=== PATIENT | male | born 1955 | race Two or more races ===

== ENCOUNTER 2021-08-10 10:17 | Emergency (ER) | payer MEDICAID ==
[~2021-08-10] VITALS: Ht 190.5 cm; Wt 139.7 kg
[2021-08-10 11:11] LABS: Basophils # (auto) 0.1 10 ^3/uL (0-0.2); Basophils % (auto) 1.4 % (0.0-2.0); Eosinophils # (auto) 0.3 10 ^3/uL (0-0.8); Hematocrit 41.8 % (41.0-53.0); Hemoglobin 13.9 g/dL (13.5-17.5); Lymphocytes # (auto) 1.8 10 ^3/uL (0.4-5.4); Mean Corpuscular Hemoglobin 29.6 pg (28.0-32.0); Mean Corpuscular Hgb Conc. 33.4 g/dL (32.0-36.0); Mean Corpuscular Volume 88.7 fL (80.0-100.0); Monocytes # (auto) 0.8 10 ^3/uL (0-1.3); Monocytes % (auto) 13.4 % (0.0-12.0); Neutrophils # (auto) 2.7 10 ^3/uL (1.6-8.6); Neutrophils % (auto) 48.2 % (37.0-80.0); Nucleated Red Blood Cells % 0.1 %; Red Blood Cells 4.71 10^6/uL (4.5-5.90); Red Cell Distribution Width 15.6 % (11.8-14.3); White Blood Cell 5.7 10^3/uL (4.4-10.8)
[2021-08-10 11:35] LABS: Albumin 3.5 g/dL (3.4-5.0); Calcium 8.4 mg/dL (8.5-10.1); Magnesium 2.6 mg/dL (1.6-2.6); Potassium 4.4 mmol/L (3.5-5.1)
[2021-08-10 11:40] LABS: BUN/Creatinine Ratio 15.7; Bilirubin, Total 0.2 mg/dL (0.2-1.0); Total Protein 7.5 g/dL (6.4-8.2)
[2021-08-10] MEDS ORDERED: NITROGLYCERIN 0.4 MG SL TAB SL ONE (15:30)
[2021-08-10 16:51] VITALS: BP 125/77
== END 2021-08-10 16:52 | disposition home or self-care (01) ==
LOC: ER 10:17
DX: R07.89 Other chest pain (principal); I10 Essential (primary) hypertension; E78.5 Hyperlipidemia, unspecified; Z88.0 Allergy status to penicillin
CPT/HCPCS: 36415; 71046; 80053; 83735; 84443; 84484; 85025; 93005

== ENCOUNTER 2023-05-18 17:10 | Inpatient (IN) | payer MEDICARE, MEDICAID ==
[~2023-05-18] VITALS: Ht 190.5 cm; Wt 133.9 kg
[2023-05-18 19:32] LABS: Basophils # (auto) 0.1 10 ^3/uL (0-0.2); Basophils % (auto) 0.9 % (0.0-2.0); Eosinophils # (auto) 0.3 10 ^3/uL (0-0.8); Eosinophils % (auto) 4.8 % (0.0-7.0); Hematocrit 43.7 % (41.0-53.0); Hemoglobin 14.5 g/dL (13.5-17.5); Lymphocytes # (auto) 1.8 10 ^3/uL (0.4-5.4); Lymphocytes % (auto) 28.4 % (10.0-50.0); Mean Corpuscular Hemoglobin 29.1 pg (28.0-32.0); Mean Corpuscular Hgb Conc. 33.1 g/dL (32.0-36.0); Mean Corpuscular Volume 87.8 fL (80.0-100.0); Monocytes # (auto) 0.6 10 ^3/uL (0-1.3); Monocytes % (auto) 8.8 % (0.0-12.0); Neutrophils # (auto) 3.7 10 ^3/uL (1.6-8.6); Neutrophils % (auto) 57.1 % (37.0-80.0); Nucleated Red Blood Cells % 0.1 %; Red Blood Cells 4.98 10^6/uL (4.5-5.90); Red Cell Distribution Width 16.4 % (11.8-14.3); White Blood Cell 6.5 10^3/uL (4.4-10.8)
[2023-05-18 19:41] LABS: Chloride 107 mmol/L (98-107); Potassium 4.1 mmol/L (3.5-5.1); Sodium 141 mmol/L (136-145)
[2023-05-18 19:42] LABS: Calcium 9.4 mg/dL (8.5-10.1)
[2023-05-18 19:46] LABS: INR 1.05 (0.9-1.15); Partial Thromboplastin Time 33.6 SEC (24.5-34.5)
[2023-05-18 19:47] LABS: BUN/Creatinine Ratio 9.9 (10.0-20.0); Blood Urea Nitrogen 10 mg/dL (9-23); Glucose 87 mg/dL (74-106)
[2023-05-18 19:56] LABS: Anion Gap 8 (5-15); Carbon Dioxide 26 mmol/L (20-30)
[2023-05-18] MEDS ORDERED: ACETAMINOPHEN 325 MG TAB PO PRN (21:00)
[2023-05-18] MEDS ORDERED: ONDANSETRON HCL 4 MG/2 ML VIAL IV PRN (21:00)
[2023-05-18] MEDS: GABAPENTIN 300 MG CAP PO SCH (22:49)
[2023-05-18] MEDS: ENOXAPARIN SOD 100 MG/1 ML SYRINGE SC SCH (22:49)
[2023-05-19 05:03] LABS: Basophils # (auto) 0.1 10 ^3/uL (0-0.2); Eosinophils # (auto) 0.3 10 ^3/uL (0-0.8); Eosinophils % (auto) 5.4 % (0.0-7.0); Hematocrit 42.7 % (41.0-53.0); Lymphocytes % (auto) 32.1 % (10.0-50.0); Mean Corpuscular Hemoglobin 29.1 pg (28.0-32.0); Mean Corpuscular Hgb Conc. 32.8 g/dL (32.0-36.0); Mean Corpuscular Volume 88.5 fL (80.0-100.0); Monocytes # (auto) 0.8 10 ^3/uL (0-1.3); Monocytes % (auto) 12.3 % (0.0-12.0); Neutrophils # (auto) 3.1 10 ^3/uL (1.6-8.6); Neutrophils % (auto) 49.2 % (37.0-80.0); Red Blood Cells 4.82 10^6/uL (4.5-5.90); Red Cell Distribution Width 16.1 % (11.8-14.3); White Blood Cell 6.3 10^3/uL (4.4-10.8)
[2023-05-19 05:18] LABS: Alanine Aminotransferase 17 U/L (7-40); Albumin 4.4 g/dL (3.2-4.8); Alkaline Phosphatase 61 U/L (46-116); Anion Gap 6 (5-15); Aspartate Aminotransferase 16 U/L (13-40); BUN/Creatinine Ratio 13.2 (10.0-20.0); Bilirubin, Total 0.4 mg/dL (0.2-1.0); Blood Urea Nitrogen 10 mg/dL (9-23); Calcium 9.1 mg/dL (8.5-10.1); Carbon Dioxide 26 mmol/L (20-30); Chloride 109 mmol/L (98-107); Glucose 80 mg/dL (74-106); Potassium 3.9 mmol/L (3.5-5.1); Sodium 141 mmol/L (136-145); Total Protein 6.9 g/dL (5.7-8.2)
[2023-05-19 06:16] LABS: Urine Epithelial Cast None Seen /hpf (<5); Urine WBC None Seen /hpf (0 - 3)
[2023-05-19 06:26] LABS: Urine Bacteria NONE SEEN /hpf (None Seen); Urine Blood Negative /uL (Negative); Urine Clarity Clear (Clear); Urine Color Colorless (Yellow); Urine Mucus FEW (None Seen); Urine Protein, UAD Negative (Negative); Urine Specific Gravity 1.008 (1.001-1.035); Urine Urobilinogen Normal (Negative)
[2023-05-19 08:50] VITALS: RESP 18; O2SAT 97
[2023-05-19] MEDS ORDERED: LOSARTAN POTASSIUM 25 MG TAB PO SCH (10:00)
[2023-05-19] MEDS: GABAPENTIN 300 MG CAP PO SCH ×2 (10:33→23:04)
[2023-05-19] MEDS: amLODIPine BESYLATE 5 MG TAB PO SCH (10:33)
[2023-05-19] MEDS: ENOXAPARIN SOD 100 MG/1 ML SYRINGE SC SCH (10:34)
[2023-05-19] MEDS ORDERED: IOHEXOL 350 MG/ML 100ML IJ ONE (17:08)
[2023-05-19] MEDS: TAMSULOSIN HYDROCHLORIDE 0.4 MG CAP PO SCH (18:50)
[2023-05-19] MEDS ORDERED: HEPARIN SODIUM (PORCINE) 5000 UNITS/ML 1ML VIAL IV ONE ×2 (19:30→20:00)
[2023-05-19 19:48] LABS: Basophils # (auto) 0.1 10 ^3/uL (0-0.2); Basophils % (auto) 0.9 % (0.0-2.0); Eosinophils # (auto) 0.4 10 ^3/uL (0-0.8); Eosinophils % (auto) 6.8 % (0.0-7.0); Hematocrit 42.1 % (41.0-53.0); Hemoglobin 14.1 g/dL (13.5-17.5); Lymphocytes # (auto) 1.8 10 ^3/uL (0.4-5.4); Lymphocytes % (auto) 31.7 % (10.0-50.0); Mean Corpuscular Hemoglobin 29.4 pg (28.0-32.0); Mean Corpuscular Hgb Conc. 33.4 g/dL (32.0-36.0); Mean Corpuscular Volume 87.9 fL (80.0-100.0); Monocytes # (auto) 0.5 10 ^3/uL (0-1.3); Monocytes % (auto) 8.5 % (0.0-12.0); Neutrophils % (auto) 52.1 % (37.0-80.0); Red Blood Cells 4.79 10^6/uL (4.5-5.90); Red Cell Distribution Width 16.5 % (11.8-14.3); White Blood Cell 5.8 10^3/uL (4.4-10.8)
[2023-05-19 20:02] LABS: INR 1.04 (0.9-1.15); Partial Thromboplastin Time 35.8 SEC (24.5-34.5); Prothrombin Time 10.9 sec (9.3-11.8)
[2023-05-19] MEDS ORDERED: HEPARIN SODIUM (PORCINE) 5000 UNITS/ML 1ML VIAL ONE (23:14)
[2023-05-19] MEDS: HEPARIN DRIP/D5W 100UNITS/ML 250 ML IV SCH (23:14)
[2023-05-19 23:52] VITALS: BP 130/84; PULSE 85; RESP 20; TEMP 98.7; O2SAT 92
[2023-05-20] VITALS (7 sets, daily range): BP systolic 114–127; BP diastolic 77–89; PULSE 74–95; RESP 18–20; TEMP 97.8–98.8; O2SAT 90–97
[2023-05-20] MEDS ORDERED: AMLO1TAB23 PO (01:04)
[2023-05-20] MEDS ORDERED: ROSU20TA14 PO (01:04)
[2023-05-20] MEDS ORDERED: APIX5TAB PO (01:04)
[2023-05-20 06:30] LABS: Chloride 107 mmol/L (98-107); Potassium 3.9 mmol/L (3.5-5.1); Sodium 139 mmol/L (136-145)
[2023-05-20 06:31] LABS: Anion Gap 6 (5-15); Calcium 9.3 mg/dL (8.5-10.1); Carbon Dioxide 26 mmol/L (20-30)
[2023-05-20 06:36] LABS: BUN/Creatinine Ratio 10.7 (10.0-20.0); Blood Urea Nitrogen 9 mg/dL (9-23); Glucose 88 mg/dL (74-106)
[2023-05-20 06:38] LABS: Basophils # (auto) 0.1 10 ^3/uL (0-0.2); Eosinophils # (auto) 0.4 10 ^3/uL (0-0.8); Eosinophils % (auto) 6.6 % (0.0-7.0); Hemoglobin 13.8 g/dL (13.5-17.5); Lymphocytes # (auto) 2.1 10 ^3/uL (0.4-5.4); Lymphocytes % (auto) 31.8 % (10.0-50.0); Mean Corpuscular Hemoglobin 29.7 pg (28.0-32.0); Mean Corpuscular Hgb Conc. 33.7 g/dL (32.0-36.0); Monocytes # (auto) 0.8 10 ^3/uL (0-1.3); Monocytes % (auto) 11.6 % (0.0-12.0); Neutrophils # (auto) 3.2 10 ^3/uL (1.6-8.6); Nucleated Red Blood Cells % 0.1 %; Red Blood Cells 4.67 10^6/uL (4.5-5.90); Red Cell Distribution Width 16.6 % (11.8-14.3); White Blood Cell 6.5 10^3/uL (4.4-10.8)
[2023-05-20 06:54] LABS: INR 1.07 (0.9-1.15); Prothrombin Time 11.2 sec (9.3-11.8)
[2023-05-20 07:10] LABS: Partial Thromboplastin Time 130.1 SEC (24.5-34.5)
[2023-05-20] MEDS: HEPARIN DRIP/D5W 100UNITS/ML 250 ML IV SCH (08:33)
[2023-05-20] MEDS: GABAPENTIN 300 MG CAP PO SCH ×2 (09:45→22:47)
[2023-05-20] MEDS: amLODIPine BESYLATE 5 MG TAB PO SCH (09:46)
[2023-05-20] MEDS: ENOXAPARIN SOD 150 MG/1 ML SYRINGE SC SCH (13:56)
[2023-05-20] MEDS: TAMSULOSIN HYDROCHLORIDE 0.4 MG CAP PO SCH (17:09)
[2023-05-20] MEDS ORDERED: ATORVASTATIN 20 MG TAB PO SCH (22:00)
[2023-05-21] MEDS: ENOXAPARIN SOD 150 MG/1 ML SYRINGE SC SCH ×2 (01:43→14:11)
[2023-05-21 05:22] VITALS: BP 107/72; PULSE 91; RESP 20; TEMP 98.7; O2SAT 90
[2023-05-21 05:31] LABS: LDL Cholesterol 110 mg/dL (< 100); Triglycerides 97 mg/dL (< 150)
[2023-05-21 05:32] LABS: Cholesterol 156 mg/dL (< 200); HDL Cholesterol 37 mg/dL (40-59)
[2023-05-21 09:27] VITALS: BP 131/87; PULSE 88; RESP 20; TEMP 98.4; O2SAT 95
[2023-05-21] MEDS: GABAPENTIN 300 MG CAP PO SCH (09:43)
[2023-05-21] MEDS: amLODIPine BESYLATE 5 MG TAB PO SCH (09:43)
[2023-05-21 12:32] VITALS: BP 126/90; PULSE 88; RESP 20; TEMP 98.4; O2SAT 94
[2023-05-21] MEDS ORDERED: APIX5TAB PO (12:42)
[2023-05-22 08:31] LABS: Hepatitis B Surface Antigen Negative (Negative)
[2023-05-22 08:52] LABS: Hepatitis C Antibody Negative (Negative)
== END 2023-05-21 14:52 | disposition home or self-care (01) | DRG 299 ==
LOC: ER 17:10 → OVERFLOW 21:10 → WEST WING 05-19 22:02
PROVIDERS: ADMIT Nurse Practitioner; ATTEND Internal Medicine
DX: I82.432 Acute embolism and thrombosis of left popliteal vein (principal); I26.99 Other pulmonary embolism without acute cor pulmonale; I10 Essential (primary) hypertension; E66.01 Morbid (severe) obesity due to excess calories; E11.9 Type 2 diabetes mellitus without complications; Z68.36 Body mass index [BMI] 36.0-36.9, adult; E78.5 Hyperlipidemia, unspecified; I71.20 Thoracic aortic aneurysm, without rupture, unspecified; Z88.0 Allergy status to penicillin
CPT/HCPCS: 36415; 71275; 80048; 80053; 80061; 81001; 85025; 85610; 85730; 86803; 87340; 93005; 93306; 93971; 96372; 99291; G0378

== ENCOUNTER 2024-01-20 13:28 | Emergency (ER) | payer MEDICARE, MEDICAID ==
[~2024-01-20] VITALS: Ht 190.5 cm; Wt 135.4 kg
[~2024-01-20 13:28] MED LIST: AMLO1TAB23 PO; APIX5TAB PO; ROSU20TA14 PO
[2024-01-20 14:22] VITALS: BP 118/73; PULSE 81; RESP 16; O2SAT 94
[2024-01-20] MEDS ORDERED: ACETAMINOPHEN 325 MG TAB PO ONE (15:15)
[2024-01-20] MEDS ORDERED: traMADol HCL 50 MG TAB PO ONE (15:15)
[2024-01-20] MEDS ORDERED: TRAM50TA2 PO (15:56)
[2024-01-20] MEDS ORDERED: ACET650T12 PO (15:56)
== END 2024-01-20 19:08 | disposition left against medical advice (07) ==
LOC: ER 13:28
DX: S69.92XA Unspecified injury of left wrist, hand and finger(s), initial encounter (principal); M25.571 Pain in right ankle and joints of right foot; I10 Essential (primary) hypertension; Z79.899 Other long term (current) drug therapy; Z88.0 Allergy status to penicillin; V89.9XXA Person injured in unspecified vehicle accident, initial encounter; Y93.89 Activity, other specified; Y92.89 Other specified places as the place of occurrence of the external cause; Y99.8 Other external cause status
CPT/HCPCS: 29125; 73110; 73610

== ENCOUNTER 2024-02-13 16:31 | Emergency (ER) | payer MEDICARE, MEDICAID ==
[~2024-02-13] VITALS: Ht 182.9 cm; Wt 136.0 kg
[~2024-02-13 16:31] MED LIST changes: +ACET650T12 PO; +TRAM50TA2 PO
[2024-02-13] MEDS: MORPHINE SULFATE 4 MG/ML SYR/VIAL IM ONE (16:59)
[2024-02-13] MEDS: ONDANSETRON ODT 4 MG TAB PO ONE (17:00)
[2024-02-13 17:07] VITALS: BP 138/93; PULSE 103; RESP 22; TEMP 98.3; O2SAT 96
[2024-02-13] MEDS ORDERED: LIDOCAINE HCL 2 %PF INJ 10ML AMP IJ ONE (17:15)
[2024-02-13] MEDS: LIDOCAINE 1% HCL (LOCAL ANESTH.) INJ 20ML MDV ID ONE (17:50)
[2024-02-13] MEDS: LIDOCAINE 1% HCL (LOCAL ANESTH.) INJ 20ML MDV ONE (17:50)
== END 2024-02-13 18:26 | disposition left against medical advice (07) ==
LOC: ER 16:31
DX: N48.33 Priapism, drug-induced (principal); E11.9 Type 2 diabetes mellitus without complications; I10 Essential (primary) hypertension; Z88.0 Allergy status to penicillin; Z79.899 Other long term (current) drug therapy
CPT/HCPCS: 54220; 96372; 99284; J2003; J2270; Q0162

== ENCOUNTER 2024-04-26 20:14 | Emergency (ER) | payer MEDICARE, MEDICAID ==
[~2024-04-26] VITALS: Ht 190.5 cm; Wt 135.0 kg
--- NOTE | 2024-04-26 20:21 | ECG ---
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
--- NOTE | 2024-04-26 20:27 | ED.PDOC ---
HPI Comments 68-year-old male with PMHx HTN presents with a chief complaint of chest pain x 1 hour. Patient states that his chest pain is localized to his left chest wall, non-radiating, describes as sharp, and rates his pain a 10/10. Patient is anxious in triage and is having hard time staying still for EKG in triage. Patient mentions that he took a shot of Vodka x 1 hour ago and that is when onset of chest pain began. Patients EKG shows Sinus Tach with rate of 118, Inferior Infarct Old. No other symptoms or modifying factors present at this time. Chief Complaint: Chest Pain Time Seen by MD: 20:19 Primary Care Provider: FLORENCIA Torres Notes: Medications, Allergies Allergies: Coded Allergies: Penicillins (Verified Allergy, Unknown, 06/10/15) Home Meds Active Scripts Tramadol Hcl (Tramadol Hcl) 50 Mg Tab, 50 MG PO BID for 3 Days, #6 TAB Prov:LAWRENCE REARDON MD 01/20/24 Acetaminophen (Acetaminophen Er) 650 Mg Tab, 650 MG PO QIDPRN PRN for 5 Days, #20 TAB Prov:LAWRENCE REARDON MD 01/20/24 Apixaban Base (ELIQUIS) 5 Mg Tab, 10 MG PO BID for 7 Days, #14 TAB 10MG BID X 7 DAYS THEN 5MG PO BID FOR AT LEAST 6 MONTHS FOR DVT/PE TREATMENT Prov:CALE BELLA MD 05/21/23 Apixaban Base (ELIQUIS) 5 Mg Tab, 5 MG PO BID for 30 Days, #60 TAB 3 Refills Prov:CALE BELLA MD 05/21/23 Reported Medications Apixaban Base (ELIQUIS) 5 Mg Tab, 5 MG PO BID, TAB 05/20/23 Rosuvastatin Calcium (Crestor) 20 Mg Tab, 1 TAB PO DAILY, #30 TAB 5 Refills 05/20/23 Amlodipine Besylate (Amlodipine Besylate) 10 Mg Tab, 1 TAB PO DAILY, #30 TAB 5 Refills 05/20/23 Information Source: Patient Mode of Arrival: Ambulatory Severity: Moderate Timing: Hours Duration: Since onset Prehospital treatment: None Location: Chest (L) Radiation: No Radiation Quality: Sharp Onset: With Light Exertion Cardiac Risk Factors: HTN PE Risk Factors: None History of: Similar pain in past Past Medical History PAST MEDICAL HISTORY: DM, HTN Surgical History: Denies all surgeries Family History Family History: Unknown Social History Smoker: Non-Smoker Alcohol: Occasionally Drugs: Denies Drug Use Lives In: Home Constitutional: denies: chills, diaphoresis, fatigue, fever, malaise, sweats, weakness, others EENTM: denies: blurred vision, double vision, ear bleeding, ear discharge, ear drainage, ear pain, ear ringing, eye pain, eye redness, hearing loss, mouth pain, mouth swelling, nasal discharge, nose bleeding, nose congestion, nose pain, photophobia, tearing, throat pain, throat swelling, voice changes, others Respiratory: denies: cough, hemoptysis, orthopnea, SOB at rest, shortness of breath, SOB with excertion, stridor, wheezing, others Cardiovascular: reports: chest pain; denies: dizzy spells, diaphoresis, Dyspnea on exertion, edema, irregular heart beat, left arm pain, lightheadedness, palpitations, PND, syncope, others Gastrointestinal: denies: abdomen distended, abdominal pain, blood streaked bowels, constipated, diarrhea, dysphagia, difficulty swallowing, hematemesis, melena, nausea, poor appetite, poor fluid intake, rectal bleeding, rectal pain, vomiting, others Genitourinary: denies: burning, dysuria, flank pain, frequency, hematuria, incontinence, penile discharge, penile sore, pain, testicle pain, testicle swelling, urgency, others Neurological: denies: dizziness, fainting, headache, left sided numbness, left sided weakness, numbness, paresthesia, pre-existing deficit, right sided numbness, right sided weakness, seizure, speech problems, tingling, tremors, weakness, others Musculoskeletal: denies: back pain, gout, joint pain, joint swelling, muscle pain, muscle stiffness, neck pain, others Integumetry: denies: bruises, change in color, change in hair/nails, dryness, laceration, lesions, lumps, rash, wounds, others Allergic/Immunocompromised: denies: Difficulty Healing, Frequent Infections, Hives, Itching, others Hematologic/Lymphatic: denies: anemia, blood clots, easy bleeding, easy bruising, swollen glands, others Endocrine: denies: excessive hunger, excessive sweating, excessive thirst, excessive urination, flushing, intolerance to cold, intolerance to heat, unexplained weight gain, unexplained weight loss, others Psychiatric: reports: anxiety; denies: bipolar disorder, depression, hopeless, panic disorder, schizophrenia, sleepless, suicidal, others All Other Systems: Reviewed and Negative Physical Exam General Appearance: No Apparent Distress, Normal HEENT: Normal ENT Inspection, Pharynx Normal, TMs Normal Neck: Full Range of Motion, Non-Tender, Normal, Normal Inspection Respiratory: Chest Non-Tender, Lungs Clear, No Accessory Muscle Use, No Respiratory Distress, Normal Breath Sounds Cardiovascular: No Edema, No JVD, No Murmur, No Gallop, Normal Peripheral Pulses, Regular Rate/Rhythm Breast Exam: Deferred Gastrointestinal: No Organomegaly, Non Tender, No Pulsatile Mass, Normal Bowel Sounds, Soft Genitalia: Deferred Pelvic: Deferred Rectal: Deferred Extremities: No calf tenderness, Normal capillary refill, Normal inspection, Normal range of motion, Non-tender, No pedal edema Musculoskeletal : Apperance: Normal Neurologic: Alert, cane furniture maker II-XII nml as Tested, No Motor Deficits, Normal Affect, Normal Mood, No Sensory Deficits Cerebellar Function: Normal Reflexes: Normal Skin: Dry, Normal Color, Warm Lymphatic: No Adenopathy EKG EKG : Pulse Rate (adult): 118 Rankin: Normal Cardiac Rhythm: ST Block: None Hypertrophy: None ST: Old, Inf, Infarct Was a procedure done? Was a procedure done?: No CP Differential Dx Differential Diagnosis: A-fib, Heart Failure, Pulmonary Embolus Differential Diagnosis: CHF Differential Diagnosis: Chest Wall Pain, Esophageal reflux/spasm, Pneumonia, Other X-Ray, Labs, Meds, VS Vital Signs Date Time Temp Pulse Resp B/P (MAP) Pulse Ox O2 Delivery O2 Flow Rate FiO2 04/26/24 20:55 118 30 98 Room Air* 0 21 04/26/24 20:55 98.7 118 30 121/79 (93) 98 98.7 04/26/24 20:27 118 04/26/24 20:25 98.7 118 30 121/79 (93) 98 04/26/24 20:20 118 Lab Test 04/26/24 20:26 Range/Units White Blood Count 9.5 4.4-10.8 10^3/uL Red Blood Count 5.30 4.5-5.90 10^6/uL Hemoglobin 15.8 13.5-17.5 g/dL Hematocrit 46.9 41.0-53.0 % Mean Corpuscular Volume 88.6 80.0-100.0 fL Mean Corpuscular Hemoglobin 29.9 28.0-32.0 pg Mean Corpuscular Hemoglobin Concent 33.8 32.0-36.0 g/dL Red Cell Distribution Width 15.7 H 11.8-14.3 % Platelet Count 301 140-450 10^3/uL Mean Platelet Volume 7.6 6.9-10.8 fL Neutrophils (%) (Auto) 63.4 37.0-80.0 % Lymphocytes (%) (Auto) 26.6 10.0-50.0 % Monocytes (%) (Auto) 8.7 0.0-12.0 % Eosinophils (%) (Auto) 0.0 0.0-7.0 % Basophils (%) (Auto) 1.3 0.0-2.0 % Neutrophils # (Auto) 6.0 1.6-8.6 10 ^3/uL Lymphocytes # (Auto) 2.5 0.4-5.4 10 ^3/uL Monocytes # (Auto) 0.8 0-1.3 10 ^3/uL Eosinophils # (Auto) 0 0-0.8 10 ^3/uL Basophils # (Auto) 0.1 0-0.2 10 ^3/uL Nucleated Red Blood Cells 0.1 % Prothrombin Time 10.3 9.3-11.8 sec Prothrombin Time INR 0.97 0.9-1.15 D-Dimer, Quantitative 1.52 H 0.0-0.49 mg/L FEU Sodium Level 135 L 136-145 mmol/L Potassium Level 4.2 3.5-5.1 mmol/L Chloride Level 101 98-107 mmol/L Carbon Dioxide Level 20 20-31 mmol/L Anion Gap 14 5-15 Blood Urea Nitrogen 12 9-23 mg/dL Creatinine 1.42 H 0.700-1.30 mg/dL Glomerular Filtration Rate Calc 55 >90 mL/min BUN/Creatinine Ratio 8.5 L 10.0-20.0 Serum Glucose 116 H 74-106 mg/dL Calcium Level 9.5 8.7-10.4 mg/dL Total Bilirubin 0.8 0.2-1.0 mg/dL Aspartate Amino Transferase (AST) 186 H 13-40 U/L Alanine Aminotransferase (ALT) 82 H 7-40 U/L Alkaline Phosphatase 68 46-116 U/L Troponin I High Sensitivity 54 </=54 ng/L Total Protein 7.1 5.7-8.2 g/dL Albumin 4.6 3.2-4.8 g/dL Lipase 66 H 12-53 U/L Current Medications Medications (Trade) Dose Ordered Sig/Mariaa Route Start Time Stop Time Status Last Admin Lorazepam (Ativan Inj) 2 mg ONCE ONCE IM 04/26/24 20:30 04/26/24 20:31 DC 04/26/24 20:39 Famotidine (Pepcid Tablet) 40 mg ONCE ONCE PO 04/26/24 20:30 04/26/24 20:31 DC 04/26/24 20:39 Al Hydrox/Mg Hydrox/Simethicone (Maalox Plus) 30 ml ONCE ONCE PO 04/26/24 20:30 04/26/24 20:31 DC 04/26/24 20:39 Ondansetron HCl (Zofran Po) 8 mg ONCE ONCE PO 04/26/24 20:30 04/26/24 20:31 DC 04/26/24 20:39 Time of 1ST Reevaluation: 20:49 Reevaluation 1ST: Unchanged Time of 2ND Reevaluation: 00:07 Reevaluation 2ND: Eloped Patient Education/Counseling: Diagnosis, Treatment, Prognosis Family Education/Counseling: No Family Present Departure 1 Departure Time of Disposition: 00:07 Impression: Primary Impression: Chest pain Disposition: 07 LEFT AWOL/ELOPED Condition: Guarded Discharged With: Self Critical Care Note Critical Care Time?: No Stability Stability form required: No Heart Score Heart Score: Heart Score Response (Comments) Value History Moderate Suspicious 1 EKG Repolarization Disturb 1 Age >65 2 Risk Factors 1 or 2 risk factors 1 Troponin Normal limit 0 Total 5 I personally scribed for MELE THOMASON MD ([email or web address]) on 04/26/24 at 20:27. Electronically submitted by Darnell Guy ([email or web address]). MELE THOMASON MD Apr 26, 2024 20:27
[2024-04-26] MEDS: LORazepam 2MG/ML-1ML VIAL IM ONE (20:39)
[2024-04-26] MEDS: MAALOX PLUS or MAALOX 30 ML PO ONE (20:39)
[2024-04-26] MEDS: FAMOTIDINE 20 MG TAB PO ONE (20:39)
[2024-04-26] MEDS: ONDANSETRON ODT 4 MG TAB PO ONE (20:39)
[2024-04-26 20:55] VITALS: BP 121/79; PULSE 118; RESP 30; TEMP 98.7; O2SAT 98
[2024-04-26 21:01] LABS: Basophils # (auto) 0.1 10 ^3/uL (0-0.2); Basophils % (auto) 1.3 % (0.0-2.0); Eosinophils # (auto) 0 10 ^3/uL (0-0.8); Hematocrit 46.9 % (41.0-53.0); Hemoglobin 15.8 g/dL (13.5-17.5); Lymphocytes # (auto) 2.5 10 ^3/uL (0.4-5.4); Lymphocytes % (auto) 26.6 % (10.0-50.0); Mean Corpuscular Hemoglobin 29.9 pg (28.0-32.0); Mean Corpuscular Hgb Conc. 33.8 g/dL (32.0-36.0); Mean Corpuscular Volume 88.6 fL (80.0-100.0); Monocytes # (auto) 0.8 10 ^3/uL (0-1.3); Monocytes % (auto) 8.7 % (0.0-12.0); Neutrophils % (auto) 63.4 % (37.0-80.0); Nucleated Red Blood Cells % 0.1 %; Platelet Count (auto) 301 10^3/uL (140-450); Red Cell Distribution Width 15.7 % (11.8-14.3); White Blood Cell 9.5 10^3/uL (4.4-10.8)
[2024-04-26 21:07] LABS: Albumin 4.6 g/dL (3.2-4.8); Alkaline Phosphatase 68 U/L (46-116); Anion Gap 14 (5-15); BUN/Creatinine Ratio 8.5 (10.0-20.0); Bilirubin, Total 0.8 mg/dL (0.2-1.0); Blood Urea Nitrogen 12 mg/dL (9-23); Calcium 9.5 mg/dL (8.7-10.4); Carbon Dioxide 20 mmol/L (20-31); Chloride 101 mmol/L (98-107); Potassium 4.2 mmol/L (3.5-5.1); Total Protein 7.1 g/dL (5.7-8.2)
[2024-04-26 21:18] LABS: INR 0.97 (0.9-1.15); Prothrombin Time 10.3 sec (9.3-11.8)
[2024-04-26 21:39] LABS: Alanine Aminotransferase 82 U/L (7-40); Aspartate Aminotransferase 186 U/L (13-40); Glucose 116 mg/dL (74-106); Sodium 135 mmol/L (136-145)
[2024-04-26] MEDS ORDERED: IOHEXOL 350 MG/ML 100ML IJ ONE (23:25)
== END 2024-04-27 00:06 | disposition left against medical advice (07) ==
LOC: ER 20:14
DX: R07.89 Other chest pain (principal); E11.9 Type 2 diabetes mellitus without complications; I10 Essential (primary) hypertension; Z88.0 Allergy status to penicillin; Z79.899 Other long term (current) drug therapy
CPT/HCPCS: 36415; 80053; 83690; 84484; 85025; 85379; 85610; 93005; 96372; 99284; J2060; Q0162

== ENCOUNTER 2024-05-18 05:58 | Inpatient (IN) | payer MEDICARE, MEDICAID ==
[2024-05-17 08:41] LABS: Urine Bacteria None Seen /hpf (None Seen)
[2024-05-17 09:41] LABS: Basophils # (auto) 0.2 10 ^3/uL (0-0.2); Basophils % (auto) 2.6 % (0.0-2.0); Eosinophils # (auto) 0.5 10 ^3/uL (0-0.8); Eosinophils % (auto) 6.3 % (0.0-7.0); Hematocrit 47.1 % (41.0-53.0); Hemoglobin 15.8 g/dL (13.5-17.5); Lymphocytes # (auto) 2.4 10 ^3/uL (0.4-5.4); Lymphocytes % (auto) 30.7 % (10.0-50.0); Mean Corpuscular Hemoglobin 30.1 pg (28.0-32.0); Mean Corpuscular Hgb Conc. 33.6 g/dL (32.0-36.0); Mean Corpuscular Volume 89.5 fL (80.0-100.0); Monocytes # (auto) 0.8 10 ^3/uL (0-1.3); Monocytes % (auto) 10.4 % (0.0-12.0); Neutrophils # (auto) 3.9 10 ^3/uL (1.6-8.6); Platelet Count (auto) 405 10^3/uL (140-450); Red Blood Cells 5.26 10^6/uL (4.5-5.90); Red Cell Distribution Width 15.3 % (11.8-14.3); White Blood Cell 7.7 10^3/uL (4.4-10.8)
[2024-05-17 09:58] LABS: Urine Blood Negative /uL (Negative); Urine Clarity Clear (Clear); Urine Color Yellow (Yellow); Urine Mucus FEW (None Seen); Urine Protein, UAD TRACE (Negative); Urine Specific Gravity 1.023 (1.001-1.035); Urine Squamous Epithelial Cell FEW /hpf (<5); Urine Urobilinogen Normal (Negative); Urine WBC 1 /hpf (0 - 3); Urine pH 6.5 (5.0-9.0)
[2024-05-17 10:01] LABS: INR 0.96 (0.9-1.15); Partial Thromboplastin Time 29.3 SEC (24.5-34.5); Prothrombin Time 10.2 sec (9.3-11.8)
[2024-05-17 10:21] LABS: Alanine Aminotransferase 16 U/L (7-40); Alkaline Phosphatase 83 U/L (46-116); Anion Gap 7 (5-15); Aspartate Aminotransferase 15 U/L (13-40); BUN/Creatinine Ratio 9.7 (10.0-20.0); Bilirubin, Total 0.3 mg/dL (0.2-1.0); Blood Urea Nitrogen 10 mg/dL (9-23); Calcium 9.6 mg/dL (8.7-10.4); Carbon Dioxide 27 mmol/L (20-31); Chloride 106 mmol/L (98-107); Glucose 98 mg/dL (74-106); Potassium 3.9 mmol/L (3.5-5.1); Sodium 140 mmol/L (136-145)
[2024-05-17 10:22] LABS: Total Protein 7.5 g/dL (5.7-8.2)
[~2024-05-18] VITALS: Ht 190.5 cm; Wt 134.0 kg
[~2024-05-18 05:58] MED LIST changes: -ACET650T12 PO; -APIX5TAB PO; +SEMA2INJ3 SC; -TRAM50TA2 PO
[2024-05-18] MEDS: ceFAZolin 2 GM/D5W100ml 100 ML IV ONE (06:12)
[2024-05-18] MEDS: TRANEXAMIC ACID 20 ML ONE (06:38)
[2024-05-18] MEDS ORDERED: MEPERIDINE HCL (25 MG/ML) 1ML VIAL ONE (07:26)
[2024-05-18] MEDS ORDERED: fentaNYL CITRATE 5 ML ONE (07:26)
[2024-05-18] MEDS ORDERED: MIDAZOLAM HCL 2MG/2ML 2ml VIAL (1mg/ml) ONE (07:26)
[2024-05-18] MEDS ORDERED: fentaNYL CITRATE 100 MCG/2 ML VL ONE ×2 (07:26→10:30)
--- NOTE | 2024-05-18 07:27 | DVHHP2 ---
History Allergies: Coded Allergies: Penicillins (Verified Allergy, Unknown, 06/10/15) Chief Complaint: Low back pain right leg pain as well as hip pain patient reports as being sciatica nerve pain Present Illness(Onset/Duration Low back pain developed on the onset of the last year no injury no trauma reported Noncontributory in this case Past Surgical History: Other (Left forearm wrist in a cast status post injury on May 07, 2024) Exam Exam General Appearance: Obese HEENT: Normal ENT Inspection Neck: Non-Tender, Normal, Normal Inspection Respiratory: No Accessory Muscle Use, No Respiratory Distress Cardiovascular: No JVD, Other (Skin pink warm and dry) Gastrointestinal: Other (No complaints of any abdominal discomfort swelling constipation or diarrhea) Genitalia: Deferred Rectal: Deferred Extremities: Normal capillary refill, Normal inspection (Has a history of left leg clots, patient says that his right leg starts to get develop pain when he stands for about a minute or so he is only able to ambulate for 5-10 minutes then he must sit down and rest) Neurologic: Abnormal Gait (Patient reports difficulty ambulating) Skin: Normal Color Plan Additional comments: Patient presents today for elective surgery with Dr. eRi Lombardi lumbar 3-5 posterior spinal decompression with lumbar 3-4, 4-5 posterior spinal interbody fusion with peek cage bone graft and instrumentation The patient was informed of the risks and benefits of the procedure. These include but are not limited to complications of anesthesia, postoperative infection, incomplete relief of symptoms, recurrence of symptoms, damage to blood vessels, nerves and tendons, deep venous thrombosis, pulmonary embolism and possible need for repeat surgery in the future. The risks/benefits/alternatives of surgery including but not limited to pain, bleeding, infection, damage to surrounding soft tissue structures, need for reoperation or future surgery, persistent pain/disability/deformity, pseudoarthrotsis, bone graft collapse or extrusion of interbody device, instrumentation failure, need for instrumentation removal, dural tear, temporary or permanent nerve root damage, paralysis, stroke, deep vein thrombosis, pulmonary embolism, and any associated anesthetic risk (dry mouth, sore throat, dental damage, myocardial infarction, respiratory depression, blindness) were described to the patient in detail and the patient wishes to proceed. No guarantee of surgical outcome/improvement was implied. All of the questions were answered thoroughly and consents were obtained. We will obtain all the necessary preop tests in order for the patient to be cleared medically. Call with questions Beth Streeter [facility] Orthopaedic Spine Surgery nurse practitioner For Dr Jan Serna Patient was examined, chart reviewed, labs evaluated, and diagnostic studies and findings analyzed. Case was discussed with Dr. Rei Serna who formulated the plan of care. This medical document was created using an electronic medical record system with [employer] dictation system. Although this document has been carefully reviewed, there might still be some phonetic and typographical errors. These areas are purely typographical due to imperfections of the software programs, and do not reflect any compromise in the patient's medical care. TORI STREETER NP May 18, 2024 07:27
[2024-05-18] MEDS ORDERED: ONDANSETRON HCL 4 MG/2 ML VIAL IV PRN (07:30)
[2024-05-18] MEDS ORDERED: NITROGLYCERIN 0.4 MG SL TAB SL PRN (07:30)
[2024-05-18] MEDS ORDERED: MORPHINE SULFATE INJ 2 MG/ml SYRG IV PRN (07:30)
[2024-05-18] MEDS ORDERED: HYDROcodone-ACET 10/325MG TAB PO PRN (07:30)
[2024-05-18] MEDS ORDERED: [UNRECOGNIZED DRUG - REMARK] XX ONE (07:30)
--- NOTE | 2024-05-18 08:05 | POSTOP ---
Post-Operative Note Post-Operative Note Preop Diagnosis Spinal stenosis Postop Diagnosis: Spinal stenosis with neurogenic claudication Operation performed Lumbar Degenerative Disk Disease and Lumbar Spinal Stenosis in the setting of a congenitally narrow canal resulting in severe lateral recess IN ADDITION to central canal stenosis causing Incapacitating back pain, radiculopathy and progressive neurologic deficit Procedure: Lumbar 5 laminectomy with Lumbar 5 foraminotomies and facetectomies to decompress central canal and Lumbar 5 nerve roots Lumbar 4 laminectomy with Lumbar 4 foraminotomies and facetectomies to decompress central canal and Lumbar 4 nerve roots Lumbar 3 laminectomy with Lumbar 3 foraminotomies and facetectomies to decompress central canal and Lumbar 4 nerve roots Lumbar 3 to 4 posterior spinal interbody fusion with PEEK cage Lumbar 4 to 5 posterior spinal interbody fusion with PEEK cage Lumbar 3 to 5 posterior spinal instrumentation with pedicle screws Specimen none Anesthesia: General Anesthesiologist: Dr. Barth Blood Loss(fluid mgmt) See anesthesia record Tourniquet Time none Surgeon Dr. Rei carcamo Contract Technical Writer nicole [facility], [facility]- Implant 6.5 X 45 screw x 6 set screw X6 90mm aspen X2 11mm interbody X 2 Complications & Mgmt None Additional Remarks POD # 0 Dx:Lumbar Degenerative Disk Disease and Lumbar Spinal Stenosis in the setting of a congenitally narrow canal resulting in severe lateral recess IN ADDITION to central canal stenosis causing Incapacitating back pain, radiculopathy and progressive neurologic deficit Lumbar 3 to 5 posterior spinal instrumentation with PEEK cage and pedicle screws -Disposition: -Pending -Discharge RX: pending -Follow up appointment: [place] [id number] [facility] [address] [place] [id number] -Pain: - IV pain meds post op day 1, with PO supplementation, goal is to progress weaning off IV medications and control pain with PO only. morphine 4mg q 4 hours (PAIN 7-10) - P.O. analgesics:Tylenol 650MG (PAIN 1-3) [place] 10/325 mg (PAIN 4-6) - Muscle relaxers scheduled administration. This is a beneficial medications for the incisional pain as it is mostly related to muscle spasms. Flexeril 10 mg TID - Cepacol throat lozenges as needed for sore throat -Antibiotics Operative recommendations: -Postoperative dose:-Post operative antibiotics cefazolin 1 g IV piggyback every 8 hours x 48 hours total of 6 doses -DVT PPX: -Hold all chemical DVT/ blood thinners for 14 days postoperatively -use mechanical DVT PPX such as SCD's, ambulation -Activity: -Pending PT evaluation and patients progression -Sit at side of bed for meals -Goal: Ambulate independently and safely (may use assistive devices if needed) -Medical Therapy goals: -Afebrile- Patient may develop a expected post operative fever by day 2-3, th is may not be accompanied with a elevation in WBC. if fever develops: Acetaminophen for fever. Albuterol nebulizer Tx every 12 hours for 24 hours to facilitate adequate lung expansion and prevent development of atelectasis. -Euglycemic: bloods sugars under 130mmol/L for optimal healing -Normotensive: Avoid events of hypertension. This helps to keep post operative healing intact and avoids destabilization of beneficial hemostatic coagulation. -Lumbar: -If patient is comfortable encouraged the patient to lay on their side to facilitate wound healing -Drains: -Hemovac drains: These will be to full compression unless otherwise ordered. please record and document output AND characteristic of fluid present independently at least once a shift, more often as needed. If output is greater than 100 ml in one hour of katey blood call provider. These drains will be removed once the drainage is at a acceptable level (generally less than 100ml in 24 hours) -Nerissa dressing: This will stay in place and will be removed at the patients follow up visit. Nursing is to assess the seal and power source. The seal should be intact and the power source should have a green flashing light indicating it is functioning well. Batteries can last up to 14 days. If a leak develops the dressing edges can be reinforced with a Tegaderm dressing to reestablish intact seal. The Nerissa dressing is NOT a wound vac. This does not get changed, it does not need home health management. -Record output independently, drain 1. Is a deep drain and drain 2. Is a superficial drain. Wound drainage is described by type, color, amount, and odor. Drainage can be 1 Serous: Clear and thin, may be present in healing healthy wound. 2 Serosanguineous containing blood may also be present and healthy healing wound 3. Sanguinous primarily blood 4. Purulent this is thick, white, and pus like. It may be indicated to give of a infection and should constitute a call to the provider immediately with the plan that the sample should be cultured. -Hanson: discontinued in OR -Dressings Take care not to disrupt the NERISSA dressing seal. If there is a break in the seal it can be trouble shot with a Tegaderm dressing. -Dressing to Hemovac drains may be changed once the drains have been removed by the provider. -Bowel management: -Colace 100mg bid -Diet: -Clear liquid diet and advance as patient tolerates within dietary limitations ( example: diabetic, Cardiac) -Incentive Spirometer: -10 x hour while awake, RN please educate and observe repeat demonstration, have IS at bedside POD #1 -X-rays: - none indicated at this time -Consults: -Physical Therapy evaluation, treatment recommendations, and discharge recommendations Call with questions Beth Anderson ACNP- Orthopaedic Spine Surgery nurse practitioner For Dr Jan Carcamo Patient was examined, chart reviewed, labs evaluated, and diagnostic studies and findings analyzed. Case was discussed with Dr. Rei Carcamo who formulated the plan of care. This medical document was created using an electronic medical record system with [employer] dictation system. Although this document has been carefully reviewed, there might still be some phonetic and typographical errors. These areas are purely typographical due to imperfections of the software programs, and do not reflect any compromise in the patient's medical care. Date 05/18/24 Time 08:03 NICOLE ANDERSON NP May 18, 2024 08:05
[2024-05-18] MEDS ORDERED: PROPOFOL 10 MG/ML 20 ML IV ONE ×2 (09:05→10:16)
[2024-05-18] MEDS: LIDOCAINE W/ EPINEPHRINE 1% 20ML VIAL ONE (09:31)
[2024-05-18] MEDS: amLODIPine BESYLATE 5 MG TAB PO SCH (10:00)
[2024-05-18] MEDS ORDERED: PATIENTS OWN MEDICATION (Amlodipine Besylate 1 TAB) PO SCH (10:00)
[2024-05-18] MEDS: ASPirin 81 mg TAB PO SCH (10:00)
[2024-05-18] MEDS ORDERED: PATIENTS OWN MEDICATION (Rosuvastatin Calcium (Crestor) 1 TAB) PO SCH (10:00)
[2024-05-18] MEDS ORDERED: SUGAMMADEX 200mg/2ml Vial (100MG/ML) IV ONE (12:04)
--- NOTE | 2024-05-18 12:05 | DVHOP2 ---
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 These include but are not limited to complications of anesthesia, postoperative infection, incomplete relief of symptoms, recurrence of symptoms, damage to blood vessels, nerves and tendons, deep venous thrombosis, pulmonary embolism and possible need for repeat surgery in the future. Name of Procedure Performed see detailed note Procedure Details Procedure Details: Pre-op Diagnosis: Lumbar Degenerative Disk Disease and Lumbar Spinal Stenosis in the setting of a congenitally narrow canal resulting in severe lateral recess IN ADDITION to central canal stenosis causing Incapacitating back pain, radiculopathy and progressive neurologic deficit Post-op Diagnosis:same as pre op Procedure: Lumbar 5 laminectomy with Lumbar 5 foraminotomies and facetectomies to decompress central canal and Lumbar 5 nerve roots Lumbar 4 laminectomy with Lumbar 4 foraminotomies and facetectomies to decompress central canal and Lumbar 4 nerve roots Lumbar 3 laminectomy with Lumbar 3 foraminotomies and facetectomies to deco mpress central canal and Lumbar 4 nerve roots Lumbar 3 to 4 posterior spinal interbody fusion with PEEK cage Lumbar 4 to 5 posterior spinal interbody fusion with PEEK cage Lumbar 3 to 5 posterior spinal instrumentation with pedicle screws Local Bone Autograft For Fusion Allograft Bone Substitute (Bacterin) to augment Fusion Use of Demineralized Bone Matrix to Augment Fusion Microscope For Microdissection Surgeon: Rei Serna MD Assist: FRENCH Stockton Anesthesia: General Fluids and EBL: See anesthesia note Patient was seen in the Pre Anesthesia Care Unit (PACU) and the operative site was initialed by me. All questions were answered to the patients satisfaction and chart reviewed. The patient was taken to the operative room where pre- operative antibiotics were given 30 minutes prior to incision. General anesthesia was induced and neuro-monitoring leads placed. Hanson catheter was placed. The patient was turned prone onto the [facility] spinal table. While positioning, I made sure that the belly was free to allow proper expansion of the lungs. The hips were extended and all bony prominences padded. The shoulders were abducted 80 degree and the elbows flexed 100 degrees with no tension on the brachial plexus. I check the foot arterial pulses and they were palpable. The patient was prepped and draped and time out was taken at this time per usual protocol. At this time, the C-arm fluoroscope was brought in and was used to ever the incision borders proximally and distally. Using a Number 10 B lade, an incision was made extending it proximally and distally per C arm ever from the posterior spinous process of lumbar 4,5 down to the lumbo-dorsal fascia. All bleeding was controlled with electrocautery. Self-retaining retractors were placed. Electrocautery was then used to take down the lumbo- dorsal fascia, to free the muscle off the bone bilaterally. A Jackelyn retractor w as placed over the posterior spinous process proximally and a lateral C-arm fluoroscope image was taken to insure we were at the correct level. Next, using bovie electro cautery, The deep fascia laterally to the facet joints was removed to expose the transverse processes of lumbar 3, 4 and 5 while taking care to avoid injuring the facet capsule at the proximal end of the incision. Next, the microscope was bought in for visualization and using a Luxell rongeur, the posterior spinous process of lumbar 3 and 4 and 5 bone were removed and the bone was saved for use as local autograft. I used alternating Kerison 2 mm and 3 mm rongeurs to perform central laminectomies lumbar 5 and 4 and 3 to decompress the central canal. Next using alternating Kerison 2mm and 3 mm rongeurs, the superior articular facets of lumbar 3, 4 and 5 were removed bilaterally to decompress the lateral recess (facetectomies) and then extended proximally to decompress the foramen bilaterally (foraminotomies). I used a ball tipped nerve probed to insure that the respective nerve roots were able to be mobilized 5mm in each direction were unimpeded in the lateral recess and foramen. Next I carefully inspected the dura to make sure no durotomy was visible and it was not. I retracted the right lumbar 5 nerve medially and used increasing size elio until the proper size prepared and then inserted a [id number] PEEK cage in to the disc space at L4/5 using C arm fluoroscopy. I repeated this process at the L3/4 level with another [id number] PEEK cage I covered the exposed dura with gelfoam soaked in thrombin and the microscope was wheeled away from the operative filed. The C-arm fluoroscope was brought in and perfect AP views of the lumbar 4 and 5 pedicles were obtained. I placed bilateral pedicle screws at these levels by: using a Lenke awl to make a ferry pilot hole, then a ball tip robe to make sure there was no pedicle breach, then a tap to prepare the track and a 6.5 mm diameter 45 mm length pedicle screw was placed bilaterally. This step to place bilateral pedicle screws was repeated up to the lumbar 3, 4 and 5 level. Next, the c-arm fluoroscope took an AP and lateral x-ray to ensure proper placement of the pedicle screws. Next, the neuro-stimulation probe was placed over the tip of each screw and each screw stimulated only after a current greater than 10 mA was delivered to the screw. Next , I took a Midas Darrell Drill to decorticate the transverse process which were exposed and local bone graft, Bacterin allograft bone substitute and Demineralized bone matrix were placed along the inter transverse process intervals bilaterally (the fusion bed). Next a curved aspen sized to fit the pedicle screw interval was placed and secured to each pedicle screw using set screws, The set screws were tightened using a torque screwdriver (set to 10 N*M torque) to secure the aspen to the pedicle screws bilaterally. Final AP and lateral C arm fluoroscopic films were taken at this time. Next a 10 Armenian diameter Hemovac drain was laced deep to the lumbo- dorsal fascia. The lumbo-dorsal fascia was closed with interrupted 0-Vicry sutures. The subcutaneous tissue was closed with interrupted 2-0 Vicryl sutures. The skin was closed with running 2-0 nylon suture. Sterile dressings were place. The pt. was turned supine onto the stretcher, extubated and taken to the recovery room in stable condition. At the end of the case a TLSO brace was placed as well as an external bone stimulator. Condition Stable Disposition Still a Patient REI SERNA MD May 18, 2024 12:05
[2024-05-18 13:01] VITALS: PULSE 88; RESP 15
[2024-05-18] MEDS: MORPHINE SULFATE 4 MG/ML SYR/VIAL IV ONE (13:16)
--- NOTE | 2024-05-18 13:23 | DVH ---
FLUOROSCOPY TIME: 1 minute 56 seconds TECHNIQUE: Intraoperative radiographs of the lumbosacral spine were obtained. COMPARISON: None FINDINGS: Refer to intraoperative report for further evaluation. IMPRESSION: Refer to intraoperative report for further evaluation.
[2024-05-18] MEDS: HYDROcodone-ACET 10/325MG TAB PO ONE (13:25)
[2024-05-18] MEDS ORDERED: CYCLOBENZAPRINE HCL 10 MG TAB PO SCH (14:00)
[2024-05-18] MEDS: HYDROmorphone HCL 2 MG/ML VL/or syr ONE (14:13)
[2024-05-18] MEDS ORDERED: hydrALAZINE HCL 20 MG/ML VL IV PRN (14:15)
[2024-05-18] MEDS: ONDANSETRON HCL 4 MG/2 ML VIAL IV ONE (14:15)
[2024-05-18] MEDS ORDERED: MORPHINE SULFATE 4 MG/ML SYR/VIAL IV PRN (14:15)
[2024-05-18] MEDS ORDERED: MIDAZOLAM HCL 2MG/2ML 2ml VIAL (1mg/ml) IV PRN (14:15)
[2024-05-18] MEDS ORDERED: ePHEDrine SULFATE 50 MG/ML AMP IV PRN (14:15)
[2024-05-18] MEDS: HYDROmorphone HCL 2 MG/ML VL/or syr IV PRN (14:24)
[2024-05-18] MEDS: ceFAZolin 1GM/50ML 50 ML IV SCH (15:30)
[2024-05-18 16:57] VITALS: BP 121/78; PULSE 94; RESP 17; TEMP 98; O2SAT 92
[2024-05-18 18:09] VITALS: PULSE 94; RESP 17; O2SAT 92
[2024-05-18] MEDS: OXYCODONE W/ ACETAMINOPHEN 5/325MG TABLET PO PRN (18:14)
[2024-05-18 20:00] VITALS: PULSE 88; RESP 16
[2024-05-18 21:00] VITALS: BP 127/84; PULSE 91; RESP 18; TEMP 98.3; O2SAT 95
[2024-05-18] MEDS: ATORVASTATIN 20 MG TAB PO SCH (22:00)
[2024-05-19] VITALS (8 sets, daily range): BP systolic 108–124; BP diastolic 69–81; PULSE 86–92; RESP 16–20; TEMP 97.6–98.1; O2SAT 90–94
[2024-05-19] MEDS ORDERED: PHENYLEPHRINE HCL 10 MG/ML VL IV ONE (11:43)
--- NOTE | 2024-05-19 11:48 | DVHINCON2 ---
Date Seen: May 19, [address] HAIDER Family History: Cardiovascular disease G8 MOTHER, G8 FATHER, Allergies: Coded Allergies: Penicillins (Verified Allergy, Unknown, 06/10/15) Home Meds Reported Medications Semaglutide (Ozempic) 2 Mg/3 Ml Inj, 2 MG SC QWEEKLY, INJ 05/11/24 Rosuvastatin Calcium (Crestor) 20 Mg Tab, 1 TAB PO DAILY, #30 TAB 5 Refills 05/20/23 Amlodipine Besylate (Amlodipine Besylate) 10 Mg Tab, 1 TAB PO DAILY, #30 TAB 5 Refills 05/20/23 Current Medications Current Medications Medications (Trade) Dose Ordered Sig/Mariaa Route PRN Reason Start Time Stop Time Status Last Admin Cyclobenzaprine HCl (Flexeril Tablet) 10 mg TID PO 05/18/24 14:00 05/18/24 14:16 DC Atorvastatin Calcium (Lipitor) 80 mg HS PO 05/18/24 22:00 05/18/24 22:00 Carisoprodol (Soma Tablet) 350 mg Q8HPRN PRN PO FOR MUSCLE SPASM 05/18/24 13:45 Oxycodone/ Acetaminophen (Percocet 5/ 325MG Tablet) 2 tab Q6HP PRN PO MODERATE PAIN (4-6 PAIN SCALE) 05/18/24 13:45 05/19/24 10:23 Hydralazine HCl (Apresoline Injection) 5 mg Q10M PRN IV SBP>160 05/18/24 14:15 05/18/24 15:06 DC Morphine Sulfate 2 mg Q2HPRN PRN IV BREAKTHROUGH PAIN (7-10) 05/18/24 14:15 05/18/24 14:17 DC Midazolam HCl (Versed Injection) 1 mg Q10M PRN IV ANXIETY 05/18/24 14:15 05/18/24 14:56 DC Ephedrine Sulfate (ePHEDrine SULFATE) 10 mg Q10M PRN IV SBP LESS THAN 90 05/18/24 14:15 05/18/24 14:56 DC Hydromorphone HCl (Dilaudid Injection) 0.5 mg Q10M PRN IV SEVERE PAIN (7-10 PAIN SCALE) 05/18/24 14:15 05/18/24 14:56 DC 05/18/24 14:34 Vital Signs Vital Signs Date Time Temp Pulse Resp B/P (MAP) Pulse Ox O2 Delivery O2 Flow Rate FiO2 05/19/24 10:23 121/69 05/19/24 09:00 98.1 88 17 92 98.1 05/18/24 20:00 Nasal Cannula* 3 32 Labs/Diagnostic Data Labs Test 05/17/24 08:38 Range/Units White Blood Count 7.7 4.4-10.8 10^3/uL Red Blood Count 5.26 4.5-5.90 10^6/uL Hemoglobin 15.8 13.5-17.5 g/dL Hematocrit 47.1 41.0-53.0 % Mean Corpuscular Volume 89.5 80.0-100.0 fL Mean Corpuscular Hemoglobin 30.1 28.0-32.0 pg Mean Corpuscular Hemoglobin Concent 33.6 32.0-36.0 g/dL Red Cell Distribution Width 15.3 H 11.8-14.3 % Platelet Count 405 140-450 10^3/uL Mean Platelet Volume 7.6 6.9-10.8 fL Neutrophils (%) (Auto) 50.0 37.0-80.0 % Lymphocytes (%) (Auto) 30.7 10.0-50.0 % Monocytes (%) (Auto) 10.4 0.0-12.0 % Eosinophils (%) (Auto) 6.3 0.0-7.0 % Basophils (%) (Auto) 2.6 H 0.0-2.0 % Neutrophils # (Auto) 3.9 1.6-8.6 10 ^3/uL Lymphocytes # (Auto) 2.4 0.4-5.4 10 ^3/uL Monocytes # (Auto) 0.8 0-1.3 10 ^3/uL Eosinophils # (Auto) 0.5 0-0.8 10 ^3/uL Basophils # (Auto) 0.2 0-0.2 10 ^3/uL Nucleated Red Blood Cells 0.0 % Prothrombin Time 10.2 9.3-11.8 sec Prothrombin Time INR 0.96 0.9-1.15 Activated Partial Thromboplast Time 29.3 24.5-34.5 SEC Urine Color Yellow Yellow Urine Clarity Clear Clear Urine pH 6.5 5.0-9.0 Urine Specific [place] 1.023 1.001-1.035 Urine Protein Trace H Negative Urine Ketones Trace Negative Urine Blood Negative Negative /uL Urine Nitrite Negative Negative Urine Bilirubin Negative Negative Urine Urobilinogen Normal Negative mg/dL Urine Leukocyte Esterase Negative Negative /uL Urine RBC <1 0 - 3 /hpf Urine WBC 1 0 - 3 /hpf Urine Squamous Epithelial Cells Few <5 /hpf Urine Bacteria None seen None Seen /hpf Urine Mucus Few None Seen Urine Glucose Normal Normal mg/dL Sodium Level 140 136-145 mmol/L Potassium Level 3.9 3.5-5.1 mmol/L Chloride Level 106 98-107 mmol/L Carbon Dioxide Level 27 20-31 mmol/L Anion Gap 7 5-15 Blood Urea Nitrogen 10 9-23 mg/dL Creatinine 1.03 0.700-1.30 mg/dL Glomerular Filtration Rate Calc 80 >90 mL/min BUN/Creatinine Ratio 9.7 L 10.0-20.0 Serum Glucose 98 74-106 mg/dL Calcium Level 9.6 8.7-10.4 mg/dL Total Bilirubin 0.3 0.2-1.0 mg/dL Aspartate Amino Transferase (AST) 15 13-40 U/L Alanine Aminotransferase (ALT) 16 7-40 U/L Alkaline Phosphatase 83 46-116 U/L Total Protein 7.5 5.7-8.2 g/dL Albumin 5.0 H 3.2-4.8 g/dL Assessment SEE DICTATED NOTE Plan discussed with: Patient Date of Service: May 19, 2024 Billing Provider: CALE BELLA MD Common Visit Codes: [id number] INP/OBS CARE (HIGH) CALE BELLA MD May 19, 2024 11:48
--- NOTE | 2024-05-19 11:59 | DVHPN2 ---
Progress Note - Surgical Date Seen: May 19, 2024 Post op day Post op day: 1 Subjective Patient reports: No new complaints, Feels better Review of Systems: HEENT:Normal, CVS:Normal, RESPIRATORY:Normal, GI:Normal, :Normal, MSK:Normal, NEURO:Normal Objective Vital signs Vital Sign Date Time Temp Pulse Resp B/P (MAP) Pulse Ox O2 Delivery O2 Flow Rate FiO2 05/19/24 10:23 121/69 05/19/24 09:00 98.1 88 17 92 98.1 05/18/24 20:00 Nasal Cannula* 3 32 Total Intake and Output 05/18/24 05/18/24 05/19/24 15:00 23:00 07:00 Intake Total 600 ml Output Total 340 ml 1450 ml Balance -340 ml -850 ml Medications Current Medications Medications Dose Ordered Sig/Mariaa Route Start Time Stop Time Status Last Admin Dose Admin Ondansetron HCl 4 mg Q4HP PRN IV 05/18/24 07:30 Acetaminophen 650 mg Q6HP PRN PO 05/18/24 07:30 Morphine Sulfate 4 mg Q4HP PRN IV 05/18/24 07:30 Magnesium Hydroxide 30 ml Q12HP PRN PO 05/18/24 07:30 Docusate Sodium 100 mg Q12HP PRN PO 05/18/24 07:30 Patient Own Medication 1 tab DAILY PO 05/18/24 10:00 UNV Patient Own Medication 1 tab DAILY PO 05/18/24 10:00 UNV Nitroglycerin 0.4 mg Q5MINP PRN SL 05/18/24 07:30 Morphine Sulfate 2 mg Q30M PRN IV 05/18/24 07:30 Aspirin 81 mg DAILY PO 05/18/24 10:00 05/19/24 10:23 81 MG Atorvastatin Calcium 80 mg HS PO 05/18/24 22:00 05/18/24 22:00 80 MG Carisoprodol 350 mg Q8HPRN PRN PO 05/18/24 13:45 Oxycodone/ Acetaminophen 2 tab Q6HP PRN PO 05/18/24 13:45 05/19/24 10:23 2 TAB Laboratory Laboratory Tests 05/17/24 08:38 Test 05/17/24 08:38 Range/Units Serum Glucose 98 74-106 mg/dL Examination: GENERAL:Normal, HEENT:Normal, NECK:Normal, LUNGS:Normal, CVS:Normal, ABDOMEN:Normal, MSK:Normal, SKIN:Normal (nerissa intact ), NEURO:Normal (patient up and walking, states he feels better that before surgery ), :Normal Problem List/Assessment/Plan Problems: (1) Muscle spasm of back (2) Postoperative pain after spinal surgery Assessment and Plan -Pain: - IV pain meds post op day 1, with PO supplementation, goal is to progress weaning off IV medications and control pain with PO only. morphine 4mg q 4 hours (PAIN 7-10) - P.O. analgesics:Tylenol 650MG (PAIN 1-3) [place] 10/325 mg (PAIN 4-6) - Muscle relaxers scheduled administration. This is a beneficial medications for the incisional pain as it is mostly related to muscle spasms. Flexeril 10 mg TID - Cepacol throat lozenges as needed for sore throat -Antibiotics Operative recommendations: completed -DVT PPX: -Hold all chemical DVT/ blood thinners for 14 days postoperatively -use mechanical DVT PPX such as SCD's, ambulation -Activity: -Pending PT evaluation and patients progression -Sit at side of bed for meals -Goal: Ambulate independently and safely (may use assistive devices if needed) -Medical Therapy goals: -Afebrile- Patient may develop a expected post operative fever by day 2-3, this may not be accompanied with a elevation in WBC. if fever develops: Acetaminophen for fever. Albuterol nebulizer Tx every 12 hours for 24 hours to facilitate adequate lung expansion and prevent development of atelectasis. -Euglycemic: bloods sugars under 130mmol/L for optimal healing -Normotensive: Avoid events of hypertension. This helps to keep post operative healing intact and avoids destabilization of beneficial hemostatic coagulation. -Lumbar: -If patient is comfortable encouraged the patient to lay on their side to facilitate wound healing -Drains: -Hemovac drains: These will be to full compression unless otherwise ordered. please record and document output AND characteristic of fluid present independently at least once a shift, more often as needed. If output is greater than 100 ml in one hour of katey blood call provider. These drains will be removed once the drainage is at a acceptable level (generally less than 100ml in 24 hours) -Nerissa dressing: This will stay in place and will be removed at the patients follow up visit. Nursing is to assess the seal and power source. The seal should be intact and the power source should have a green flashing light indicating it is functioning well. Batteries can last up to 14 days. If a leak develops the dressing edges can be reinforced with a Tegaderm dressing to reestablish intact seal. The Nerissa dressing is NOT a wound vac. This does not get changed, it does not need home health management. -Record output independently, drain 1. Is a deep drain and drain 2. Is a superficial drain. Wound drainage is described by type, color, amount, and odor. Drainage can be 1 Serous: Clear and thin, may be present in healing healthy wound. 2 Serosanguineous containing blood may also be present and healthy healing wound 3. Sanguinous primarily blood 4. Purulent this is thick, white, and pus like. It may be indicated to give of a infection and should constitute a call to the provider immediately with the plan that the sample should be cultured. -Hanson: discontinued in OR -Dressings Take care not to disrupt the NERISSA dressing seal. If there is a break in the seal it can be trouble shot with a Tegaderm dressing. -Dressing to Hemovac drains may be changed once the drains have been removed by the provider. -Bowel management: -Colace 100mg bid -Diet: -Clear liquid diet and advance as patient tolerates within dietary limitations ( example: diabetic, Cardiac) -Incentive Spirometer: -10 x hour while awake, RN please educate and observe repeat demonstration, have IS at bedside POD #1 -X-rays: - none indicated at this time -Consults: -Physical Therapy evaluation, treatment recommendations, and discharge recommendations Call with questions Beth Streeter ACNP- Orthopaedic Spine Surgery nurse practitioner For Dr Jan Serna Patient was examined, chart reviewed, labs evaluated, and diagnostic studies and findings analyzed. Case was discussed with Dr. Rei Serna who formulated the plan of care. This medical document was created using an electronic medical record system with [employer] system. Although this document has been carefully reviewed, there might still be some phonetic and typographical errors. These areas are purely typographical due to imperfections of the software programs, and do not reflect any compromise in the patient's medical care. Plan discussed with Plan discussed with: Patient, Other Visit Coding Surgery Date of Service if different f: May 19, 2024 Billing Provider: TORI STREETER NP Surgery Visit Codes: NOT BILLABLE TORI STREETER NP May 19, 2024 11:59
--- NOTE | 2024-05-19 12:23 | DVHINCON2 ---
HISTORY OF PRESENT ILLNESS: The patient is a 68-year-old gentleman who was admitted after he underwent surgery on the lumbar spine for lumbar spinal stenosis by Dr. Serna. The patient at this time denies significant pain. He has been able to ambulate. No chest pain or shortness of breath. No nausea or vomiting. REVIEW OF SYSTEMS: Review of rest of systems is otherwise negative. PAST MEDICAL HISTORY: Significant for hypertension, hyperlipidemia and recent wrist fracture. MEDICATIONS: He takes amlodipine, Crestor, and Ozempic. ALLERGIES: PENICILLIN. SOCIAL HISTORY: Denies smoking or alcohol. FAMILY HISTORY: Negative. PHYSICAL EXAMINATION: GENERAL: The patient is awake, alert. VITAL SIGNS: Temperature 98.3, pulse 88 per minute, blood pressure 120/72. SHEENT: Unremarkable. NECK: There is no JVD. LUNGS: Equal bilaterally. No added sounds. CARDIOVASCULAR: S1, S2 is regular. ABDOMEN: Soft. There is obesity. EXTREMITIES: No pedal edema. NEUROLOGIC: The patient is nonfocal. MUSCULOSKELETAL: The left forearm is currently in a cast and the patient has a dressing with drains in the lumbar spine region. ASSESSMENT AND PLAN: * Hypertension, for which the patient's blood pressure will be monitored. * Hyperlipidemia. * Likely sleep apnea. * Left wrist fracture. * Obesity. * Status post lumbar spine surgery, for which he will be given physical therapy and pain medications. MD TONIA Vee/FARIBA/TERESSA TID: [id number] RECEIPT: [id number]
[2024-05-20] VITALS (7 sets, daily range): BP systolic 111–121; BP diastolic 66–73; PULSE 89–96; RESP 18–20; TEMP 97.6–98.8; O2SAT 93–97
[2024-05-20] MEDS: MORPHINE SULFATE INJ 2 MG/ml SYRG IV PRN (00:36)
[2024-05-20 07:40] LABS: Basophils # (auto) 0.1 10 ^3/uL (0-0.2); Basophils % (auto) 0.7 % (0.0-2.0); Eosinophils # (auto) 0.2 10 ^3/uL (0-0.8); Eosinophils % (auto) 1.5 % (0.0-7.0); Hematocrit 36.8 % (41.0-53.0); Hemoglobin 12.2 g/dL (13.5-17.5); Mean Corpuscular Hemoglobin 29.9 pg (28.0-32.0); Mean Corpuscular Hgb Conc. 33.1 g/dL (32.0-36.0); Mean Corpuscular Volume 90.3 fL (80.0-100.0); Monocytes # (auto) 1.4 10 ^3/uL (0-1.3); Monocytes % (auto) 11.6 % (0.0-12.0); Neutrophils # (auto) 8.1 10 ^3/uL (1.6-8.6); Neutrophils % (auto) 69.2 % (37.0-80.0); Platelet Count (auto) 280 10^3/uL (140-450); Red Blood Cells 4.08 10^6/uL (4.5-5.90); Red Cell Distribution Width 15.8 % (11.8-14.3); White Blood Cell 11.8 10^3/uL (4.4-10.8)
[2024-05-20 08:08] LABS: Alanine Aminotransferase 19 U/L (7-40); Albumin 4.4 g/dL (3.2-4.8); Alkaline Phosphatase 56 U/L (46-116); Anion Gap 8 (5-15); Aspartate Aminotransferase 19 U/L (13-40); BUN/Creatinine Ratio 10.7 (10.0-20.0); Bilirubin, Total 0.4 mg/dL (0.2-1.0); Calcium 8.8 mg/dL (8.7-10.4); Carbon Dioxide 25 mmol/L (20-31); Chloride 104 mmol/L (98-107); Glucose 87 mg/dL (74-106); Potassium 3.8 mmol/L (3.5-5.1); Sodium 137 mmol/L (136-145); Total Protein 6.5 g/dL (5.7-8.2)
[2024-05-20 08:09] LABS: Blood Urea Nitrogen 9 mg/dL (9-23)
--- NOTE | 2024-05-20 10:19 | DVHPN2 ---
Progress Note Date Seen: May 20, 2024 Medical Necessity Reason Pt with a Central, PICC or Fol: No Subjective Patient reports: No new complaints Review of Systems: HEENT:Normal, CVS:Normal, RESPIRATORY:Normal, GI:Normal, :Normal, MSK:Normal, NEURO:Normal Objective vital signs Vital Sign Date Time Temp Pulse Resp B/P (MAP) Pulse Ox O2 Delivery O2 Flow Rate FiO2 05/20/24 05:00 98.4 90 18 115/72 (86) 97 98.4 05/19/24 20:00 Nasal Cannula* 3 32 Total Intake and Output 05/19/24 05/19/24 05/20/24 15:00 23:00 07:00 Intake Total 1200 ml 800 ml Balance 1200 ml 800 ml medications Current Medications Medications Dose Ordered Sig/Mariaa Route Start Time Stop Time Status Last Admin Dose Admin Ondansetron HCl 4 mg Q4HP PRN IV 05/18/24 07:30 Acetaminophen 650 mg Q6HP PRN PO 05/18/24 07:30 Morphine Sulfate 4 mg Q4HP PRN IV 05/18/24 07:30 05/20/24 00:36 4 MG Magnesium Hydroxide 30 ml Q12HP PRN PO 05/18/24 07:30 Docusate Sodium 100 mg Q12HP PRN PO 05/18/24 07:30 Patient Own Medication 1 tab DAILY PO 05/18/24 10:00 UNV Patient Own Medication 1 tab DAILY PO 05/18/24 10:00 UNV Nitroglycerin 0.4 mg Q5MINP PRN SL 05/18/24 07:30 Morphine Sulfate 2 mg Q30M PRN IV 05/18/24 07:30 Aspirin 81 mg DAILY PO 05/18/24 10:00 05/19/24 10:23 81 MG Atorvastatin Calcium 80 mg HS PO 05/18/24 22:00 05/18/24 22:00 80 MG Carisoprodol 350 mg Q8HPRN PRN PO 05/18/24 13:45 Oxycodone/ Acetaminophen 2 tab Q6HP PRN PO 05/18/24 13:45 05/19/24 17:26 2 TAB Examination: GENERAL:Normal, HEENT:Normal, NECK:Normal, LUNGS:Normal, CVS:Normal, ABDOMEN:Normal, MSK:Normal, MSK:Abnormal (left wrist splint, lumber drains), SKIN:Normal, NEURO:Normal, :Normal laboratory and microbiology Laboratory Tests 05/20/24 07:06 Test 05/20/24 07:06 Range/Units Serum Glucose 87 74-106 mg/dL Problem List/Assessment/Plan Problem List/Assessment/Plan * Hypertension, for which the patient's blood pressure will be monitored. * Hyperlipidemia. * Likely sleep apnea. * Left wrist fracture s/p splint * Obesity. * Status post lumbar spine surgery, for which he will be given physical therapy and pain medications. advance care planning- full code- time spent 19 mins Plan discussed with: Patient My Orders My Orders Orders - CALE BELLA MD Procedure Category Date Status Time Discontinue Tele DIGNA 05/19/24 In Process 11:40 Transfer Orders XFER 05/19/24 Transmitted 11:40 Date of Service: May 20, 2024 Billing Provider: CALE BELLA MD Common Visit Codes: [id number] INP/OBS CARE(HIGH) Secondary Visit Codes: [id number] CARE PLAN 30 MINUTES CALE BELLA MD May 20, 2024 10:19
--- NOTE | 2024-05-20 12:52 | DVHPN2 ---
Progress Note - Surgical Date Seen: May 20, 2024 Post op day Post op day: 2 Subjective Patient reports: No new complaints, Feels better Review of Systems: HEENT:Normal, CVS:Normal, RESPIRATORY:Normal, GI:Normal, :Normal, MSK:Normal, NEURO:Normal Objective Vital signs Vital Sign Date Time Temp Pulse Resp B/P (MAP) Pulse Ox O2 Delivery O2 Flow Rate FiO2 05/20/24 08:00 Nasal Cannula* 3 32 05/20/24 05:00 98.4 90 18 115/72 (86) 97 98.4 Total Intake and Output 05/19/24 05/19/24 05/20/24 15:00 23:00 07:00 Intake Total 1200 ml 800 ml Balance 1200 ml 800 ml Medications Current Medications Medications Dose Ordered Sig/Mariaa Route Start Time Stop Time Status Last Admin Dose Admin Ondansetron HCl 4 mg Q4HP PRN IV 05/18/24 07:30 Acetaminophen 650 mg Q6HP PRN PO 05/18/24 07:30 Morphine Sulfate 4 mg Q4HP PRN IV 05/18/24 07:30 05/20/24 00:36 4 MG Magnesium Hydroxide 30 ml Q12HP PRN PO 05/18/24 07:30 Docusate Sodium 100 mg Q12HP PRN PO 05/18/24 07:30 Patient Own Medication 1 tab DAILY PO 05/18/24 10:00 UNV Patient Own Medication 1 tab DAILY PO 05/18/24 10:00 UNV Nitroglycerin 0.4 mg Q5MINP PRN SL 05/18/24 07:30 Morphine Sulfate 2 mg Q30M PRN IV 05/18/24 07:30 Aspirin 81 mg DAILY PO 05/18/24 10:00 05/20/24 10:39 81 MG Atorvastatin Calcium 80 mg HS PO 05/18/24 22:00 05/18/24 22:00 80 MG Carisoprodol 350 mg Q8HPRN PRN PO 05/18/24 13:45 Oxycodone/ Acetaminophen 2 tab Q6HP PRN PO 05/18/24 13:45 05/20/24 10:40 2 TAB Laboratory Laboratory Tests 05/20/24 07:06 Test 05/20/24 07:06 Range/Units Serum Glucose 87 74-106 mg/dL Examination: GENERAL:Normal, HEENT:Normal, NECK:Normal, LUNGS:Normal, CVS:Normal, ABDOMEN:Normal, MSK:Normal, SKIN:Normal (Hemovac #1 removed 75ml of sanguineous blood. Hemovac # removed 2 100ml of sanguineous blood. ), NEURO:Normal, :Normal Problem List/Assessment/Plan Problems: (1) Postoperative pain after spinal surgery (2) Muscle spasm of back (3) Lumbar stenosis Assessment and Plan Patient is doing well, up with PT, rating, drinking well. keeping drains in due to high output. -Antibiotics Operative recommendations: completed -DVT PPX: -Hold all chemical DVT/ blood thinners for 14 days postoperatively -use mechanical DVT PPX such as SCD's, ambulation -Activity: -Pending PT evaluation and patients progression -Sit at side of bed for meals -Goal: Ambulate independently and safely (may use assistive devices if needed) -Medical Therapy goals: -Afebrile- Patient may develop a expected post operative fever by day 2-3, this may not be accompanied with a elevation in WBC. if fever develops: Acetaminophen for fever. Albuterol nebulizer Tx every 12 hours for 24 hours to facilitate adequate lung expansion and prevent development of atelectasis. -Euglycemic: bloods sugars under 130mmol/L for optimal healing -Normotensive: Avoid events of hypertension. This helps to keep post operative healing intact and avoids destabilization of beneficial hemostatic coagulation. -Lumbar: -If patient is comfortable encouraged the patient to lay on their side to facilitate wound healing -Drains: -Hemovac drains: These will be to full compression unless otherwise ordered. please record and document output AND characteristic of fluid present independently at least once a shift, more often as needed. If output is greater than 100 ml in one hour of katey blood call provider. These drains will be removed once the drainage is at a acceptable level (generally less than 100ml in 24 hours) -Nerissa dressing: This will stay in place and will be removed at the patients follow up visit. Nursing is to assess the seal and power source. The seal should be intact and the power source should have a green flashing light indicating it is functioning well. Batteries can last up to 14 days. If a leak develops the dressing edges can be reinforced with a Tegaderm dressing to reestablish intact seal. The Nerissa dressing is NOT a wound vac. This does not get changed, it does not need home health management. -Record output independently, drain 1. Is a deep drain and drain 2. Is a superficial drain. Wound drainage is described by type, color, amount, and odor. Drainage can be 1 Serous: Clear and thin, may be present in healing healthy wound. 2 Serosanguineous containing blood may also be present and healthy healing wound 3. Sanguinous primarily blood 4. Purulent this is thick, white, and pus like. It may be indicated to give of a infection and should constitute a call to the provider immediately with the plan that the sample should be cultured. -Hanson: discontinued in OR -Dressings Take care not to disrupt the NERISSA dressing seal. If there is a break in the seal it can be trouble shot with a Tegaderm dressing. -Dressing to Hemovac drains may be changed once the drains have been removed by the provider. -Bowel management: -Colace 100mg bid -Diet: -Clear liquid diet and advance as patient tolerates within dietary limitations ( example: diabetic, Cardiac) -Incentive Spirometer: -10 x hour while awake, RN please educate and observe repeat demonstration, have IS at bedside POD #1 -X-rays: - none indicated at this time -Consults: -Physical Therapy evaluation, treatment recommendations, and discharge recommendations Call with questions Beth Streeter [facility]- Orthopaedic Spine Surgery nurse practitioner For Dr Jan Serna Patient was examined, chart reviewed, labs evaluated, and diagnostic studies and findings analyzed. Case was discussed with Dr. Rei Serna who formulated the plan of care. This medical document was created using an electronic medical record system with [employer] dictation system. Although this document has been carefully reviewed, there might still be some phonetic and typographical errors. These areas are purely typographical due to imperfections of the software programs, and do not reflect any compromise in the patient's medical care. Plan discussed with Plan discussed with: Patient, Other (bedside RN) Visit Coding Surgery Date of Service if different f: May 20, 2024 Billing Provider: TORI STREETER NP Surgery Visit Codes: NOT BILLABLE TORI STREETER NP May 20, 2024 12:52
[2024-05-21] VITALS (8 sets, daily range): BP systolic 95–115; BP diastolic 55–74; PULSE 95–99; RESP 18–20; TEMP 98.4–100.4; O2SAT 93–98
[2024-05-21] MEDS: MILK OF MAGNESIA 30ML SUSP PO PRN (08:54)
[2024-05-21] MEDS: DOCUSATE SOD 100 MG CAP PO PRN (08:54)
[2024-05-21] MEDS: CARISOPRODOL 350 MG TAB PO PRN (12:40)
--- NOTE | 2024-05-21 13:41 | DVHPN2 ---
Reviewed: Care Plan, H&P, Labs, Medications, Previous Orders Changes from previous H/P or p: No Changes General: Per HPI Objective Vitals Vital Signs Date Time Temp Pulse Resp B/P (MAP) Pulse Ox O2 Delivery O2 Flow Rate FiO2 05/21/24 12:35 100.4 97 19 97/55 (69) 96 100.4 05/21/24 08:00 Room Air* 0 21 Intake/Output Intake and Output 05/21/24 07:00 Intake Total 1520 ml Output Total 1000 ml Balance 520 ml Intake Oral 1520 ml Output Urine Total 1000 ml General Appearance: Alert, Oriented X3 HEENT: Atraumatic Cardiovascular: Regular rate, Normal S1, Normal S2 Abdomen: Normal bowel sounds Medications Current Medications Medications Dose Ordered Sig/Mariaa Route Start Time Stop Time Status Last Admin Dose Admin Ondansetron HCl 4 mg Q4HP PRN IV 05/18/24 07:30 Acetaminophen 650 mg Q6HP PRN PO 05/18/24 07:30 Morphine Sulfate 4 mg Q4HP PRN IV 05/18/24 07:30 05/20/24 00:36 4 MG Magnesium Hydroxide 30 ml Q12HP PRN PO 05/18/24 07:30 05/21/24 08:54 30 ML Docusate Sodium 100 mg Q12HP PRN PO 05/18/24 07:30 05/21/24 08:54 100 MG Patient Own Medication 1 tab DAILY PO 05/18/24 10:00 UNV Patient Own Medication 1 tab DAILY PO 05/18/24 10:00 UNV Nitroglycerin 0.4 mg Q5MINP PRN SL 05/18/24 07:30 Morphine Sulfate 2 mg Q30M PRN IV 05/18/24 07:30 Aspirin 81 mg DAILY PO 05/18/24 10:00 05/21/24 08:54 81 MG Atorvastatin Calcium 80 mg HS PO 05/18/24 22:00 05/20/24 20:05 80 MG Carisoprodol 350 mg Q8HPRN PRN PO 05/18/24 13:45 05/21/24 12:40 350 MG Oxycodone/ Acetaminophen 2 tab Q6HP PRN PO 05/18/24 13:45 05/20/24 20:05 2 TAB Laboratory Results Laboratory Tests 05/20/24 07:06 Urinalysis Test 05/17/24 08:38 Urine Color Yellow (Yellow) Urine Clarity Clear (Clear) Urine pH 6.5 (5.0-9.0) Urine Specific [place] 1.023 (1.001-1.035) Urine Protein Trace (Negative) H Urine Ketones Trace (Negative) Urine Blood Negative /uL (Negative) Urine Nitrite Negative (Negative) Urine Bilirubin Negative (Negative) Urine Urobilinogen Normal mg/dL (Negative) Urine Leukocyte Esterase Negative /uL (Negative) Urine RBC <1 /hpf (0 - 3) Urine WBC 1 /hpf (0 - 3) Urine Squamous Epithelial Cells Few /hpf (<5) Urine Bacteria None seen /hpf (None Seen) Urine Mucus Few (None Seen) Urine Glucose Normal mg/dL (Normal) Labs and/or images reviewed: Labs reviewed by me, Image(s) reviewed by me Assessment/Plan Assessment/Plan Hypertension, for which the patient's blood pressure will be monitored. * Hyperlipidemia. * Likely sleep apnea. * Left wrist fracture s/p splint * Obesity. * Status post lumbar spine surgery, for which he will be given physical therapy and pain medications. Plan discussed with: Patient Date of Service: May 21, 2024 Billing Provider: CONOR SHARMA DO Common Visit Codes: [id number] INP/OBS CARE(HIGH) CONOR SHARMA DO May 21, 2024 13:41
[2024-05-21] MEDS: ACETAMINOPHEN 325 MG TAB PO PRN (14:53)
[2024-05-21] MEDS ORDERED: PERCOT PO (15:55)
[2024-05-21] MEDS ORDERED: CYCL-611 PO (15:55)
[2024-05-21] MEDS ORDERED: DOCU-265 PO (15:55)
--- NOTE | 2024-05-21 16:00 | DVHDS2 ---
ASSESSMENT ASSESSMENT Hospital Course The patient arrived for a elective spine surgery with Dr. SERNA. Surgery went as planned with no complications. After a short stay in the PACU patient was admitted to the hospital for postoperative care and pain management over the course of 3 postoperative days the patient was able to tolerate a diet, ambulate independently, the pain has been managed with oral analgesics. The surgical site is well-approximated with sutures, some residual drainage continues from drain insertion sites after removal, however it is manageable with daily wound care and dressing changes. Some improvement to preoperative symptoms of extremities, strength and motion. There is new post operative pain that is localized to the surgical site. The patient will follow-up with Dr. Serna for wound check and suture check or staple removal. The patient may use [place] J collar /TLSO / Soft collar for comfort and while mobilizing. Assessment Problems: (1) Postoperative pain after spinal surgery Assessments: Patient is given a prescription for oral analgesia medication which is currently working well in the hospital (2) Muscle spasm of back Assessments: Call with questions Beth Streeter [facility] Orthopaedic Spine Surgery nurse practitioner For Dr Jan Serna Patient was examined, chart reviewed, labs evaluated, and diagnostic studies and findings analyzed. Case was discussed with Dr. Rei Serna who formulated the plan of care. This medical document was created using an electronic medical record system with [employer] dictation system. Although this document has been carefully reviewed, there might still be some phonetic and typographical errors. These areas are purely typographical due to imperfections of the software programs, and do not reflect any compromise in the patient's medical care. Patient is given a prescription for Flexeril 10 mg Q 8 hours for muscle spasms. This is a change from the Soma that he was given due to him feeling too uncomfortable and dizzy on it. TORI STREETER NP May 21, 2024 16:00
--- NOTE | 2024-05-21 16:12 | DVHDS2 ---
Discharge Summary Date of Admission May 18, 2024 at 07:27 Date of Discharge: May 21, 2024 Admitting Diagnosis Lumbar stenosis Wounds: Posterior lumbar wound well approximated with anchor suture with a jos dressing that is intact and functioning. Labs/Diagnostic Data: Laboratory Results Test 05/20/24 07:06 05/17/24 08:38 White Blood Count 11.8 10^3/uL (4.4-10.8) Red Blood Count 4.08 10^6/uL (4.5-5.90) Hemoglobin 12.2 g/dL (13.5-17.5) Hematocrit 36.8 % (41.0-53.0) Mean Corpuscular Volume 90.3 fL (80.0-100.0) Mean Corpuscular Hemoglobin 29.9 pg (28.0-32.0) Mean Corpuscular Hemoglobin Concent 33.1 g/dL (32.0-36.0) Red Cell Distribution Width 15.8 % (11.8-14.3) Platelet Count 280 10^3/uL (140-450) Mean Platelet Volume 7.5 fL (6.9-10.8) Neutrophils (%) (Auto) 69.2 % (37.0-80.0) Lymphocytes (%) (Auto) 17.0 % (10.0-50.0) Monocytes (%) (Auto) 11.6 % (0.0-12.0) Eosinophils (%) (Auto) 1.5 % (0.0-7.0) Basophils (%) (Auto) 0.7 % (0.0-2.0) Neutrophils # (Auto) 8.1 10 ^3/uL (1.6-8.6) Lymphocytes # (Auto) 2.0 10 ^3/uL (0.4-5.4) Monocytes # (Auto) 1.4 10 ^3/uL (0-1.3) Eosinophils # (Auto) 0.2 10 ^3/uL (0-0.8) Basophils # (Auto) 0.1 10 ^3/uL (0-0.2) Nucleated Red Blood Cells 0.0 % Sodium Level 137 mmol/L (136-145) Potassium Level 3.8 mmol/L (3.5-5.1) Chloride Level 104 mmol/L (98-107) Carbon Dioxide Level 25 mmol/L (20-31) Anion Gap 8 (5-15) Blood Urea Nitrogen 9 mg/dL (9-23) Creatinine 0.84 mg/dL (0.700-1.30) Glomerular Filtration Rate Calc 96 mL/min (>90) BUN/Creatinine Ratio 10.7 (10.0-20.0) Serum Glucose 87 mg/dL (74-106) Calcium Level 8.8 mg/dL (8.7-10.4) Total Bilirubin 0.4 mg/dL (0.2-1.0) Aspartate Amino Transferase (AST) 19 U/L (13-40) Alanine Aminotransferase (ALT) 19 U/L (7-40) Alkaline Phosphatase 56 U/L (46-116) Total Protein 6.5 g/dL (5.7-8.2) Albumin 4.4 g/dL (3.2-4.8) Prothrombin Time 10.2 sec (9.3-11.8) Prothrombin Time INR 0.96 (0.9-1.15) Activated Partial Thromboplast Time 29.3 SEC (24.5-34.5) Urine Color Yellow (Yellow) Urine Clarity Clear (Clear) Urine pH 6.5 (5.0-9.0) Urine Specific [place] 1.023 (1.001-1.035) Urine Protein Trace (Negative) Urine Ketones Trace (Negative) Urine Blood Negative /uL (Negative) Urine Nitrite Negative (Negative) Urine Bilirubin Negative (Negative) Urine Urobilinogen Normal mg/dL (Negative) Urine Leukocyte Esterase Negative /uL (Negative) Urine RBC <1 /hpf (0 - 3) Urine WBC 1 /hpf (0 - 3) Urine Squamous Epithelial Cells Few /hpf (<5) Urine Bacteria None seen /hpf (None Seen) Urine Mucus Few (None Seen) Urine Glucose Normal mg/dL (Normal) Other Laboratory Tests 05/20/24 07:06 Brief Hx & Hospital Course: The patient arrived for a elective spine surgery with Dr. SERNA. Surgery went as planned with no complications. After a short stay in the PACU patient was admitted to the hospital for postoperative care and pain management over the course of 3 postoperative days the patient was able to tolerate a diet, ambulate independently, the pain has been managed with oral analgesics. The surgical site is well-approximated with sutures, some residual drainage continues from drain insertion sites after removal, however it is manageable with daily wound care and dressing changes. Some improvement to preoperative symptoms of extremities, strength and motion. There is new post operative pain that is localized to the surgical site. The patient will follow-up with Dr. Serna for wound check and suture check or staple removal. The patient may use [place] J collar /TLSO / Soft collar for comfort and while mobilizing. 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 in severe lateral recess IN ADDITION to central canal stenosis causing Incapacitating back pain, radiculopathy and progressive neurologic deficit Procedure: Lumbar 5 laminectomy with Lumbar 5 foraminotomies and facetectomies to decompress central canal and Lumbar 5 nerve roots Lumbar 4 laminectomy with Lumbar 4 foraminotomies and facetectomies to decompress central canal and Lumbar 4 nerve roots Lumbar 3 laminectomy with Lumbar 3 foraminotomies and facetectomies to decompress central canal and Lumbar 4 nerve roots Lumbar 3 to 4 posterior spinal interbody fusion with PEEK cage Lumbar 4 to 5 posterior spinal interbody fusion with PEEK cage Lumbar 3 to 5 posterior spinal instrumentation with pedicle screws Condition at Discharge: Good Final Diagnosis/Problems List Resolved lumbar stenosis Secondary Diagnosis: Acute postoperative pain Problems List: (1) Postoperative pain after spinal surgery Status: Acute (2) Muscle spasm of back Status: Acute (3) Lumbar stenosis Status: Resolved (4) Lumbar stenosis with neurogenic claudication Status: Resolved Discharge Disposition: Home Discharge Instruct/Medications Diet: See Comment Diet comment: May resume a normal eating no restrictions Activity: Light activity Activity comment: Limit your bending lifting twisting reaching until cleared by your surgeon. Do not lift more than 5 lb. Follow Up/Referral: Call [phone] for a appointment [id number] [place] [address], [address] [address] Medications: Medications sent to pharmacy on file New Medications: Cyclobenzaprine HCl (Cyclobenzaprine Hydrochlo) 10 Mg Tab 10 MG PO Q8HR for 30 Days, #90 TAB Docusate Sodium (Docusate Sodium) 100 Mg Cap 100 MG PO Q12HP PRN for 30 Days, #60 CAP Oxycodone W/ Acetaminophen (Percocet 5/325MG) 1 Tab Tb 2 TAB PO Q6HP PRN for 10 Days, #80 TAB Continued Medications: Amlodipine Besylate (Amlodipine Besylate) 10 Mg Tab 1 TAB PO DAILY, #30 TAB 5 Refills Rosuvastatin Calcium (Crestor) 20 Mg Tab 1 TAB PO DAILY, #30 TAB 5 Refills Semaglutide (Ozempic) 2 Mg/3 Ml Inj 2 MG SC QWEEKLY, INJ Discharge Statement: "Patient was advised to return to the ER or call 911 if any headaches, dizziness, shortness of breath, chest pain, abdominal pain, bleeding, fevers, or worsening of medical condition. Patient was counseled about treatment plan, medications, possible side effects, patientverbalized understanding. All questions were answered to the best of my ability. This discharge took greater then 30 minutes in planning, reviewing documentation, counseling the patient, and discussing with other team members." DME: Diagnosis: Status post lumbar spine surgery, acute postoperative pain, leg weakness in the healing state ASSESSMENT ASSESSMENT Hospital Course The patient arrived for a elective spine surgery with Dr. SERNA. Surgery went as planned with no complications. After a short stay in the PACU patient was admitted to the hospital for postoperative care and pain management over the course of 3 postoperative days the patient was able to tolerate a diet, ambulate independently, the pain has been managed with oral analgesics. The surgical site is well-approximated with sutures, some residual drainage continues from drain insertion sites after removal, however it is manageable with daily wound care and dressing changes. Some improvement to preoperative symptoms of extremities, strength and motion. There is new post operative pain that is localized to the surgical site. The patient will follow-up with Dr. Serna for wound check and suture check or staple removal. The patient may use [place] J collar /TLSO / Soft collar for comfort and while mobilizing. Assessment Lumbar stenosis, patient arrived for elective spine surgery with Dr. Rei barragan currently is being discharged with expected postoperative back pain which is well managed. Call with [facility]. [facility] nurse [facility] For Dr Jan SernaPatient was examined, chart reviewed, labs evaluated, and diagnosticstudies and findings analyzed. Case was discussed with Dr. Rei Lew formulated the plan of care.This medical document was created using an electronic medical recordsystem with [employer] system. Although this documenthas been carefully reviewed, there might still be some phonetic andtypographical errors. These areas are purely typographical due toimperfections of the software programs, and do not reflect any compromisein the patient's medical care. Patient is given a prescription forFlexeril 10 mg Q 8 hours for musclespasms. This is a change from the Soma that he was given due to himfeeling too uncomfortable and dizzy on it. Problems: (1) Postoperative pain after spinal surgery Assessments: Patient is given a prescription for oral analgesia medication which is currently working well in the hospital (2) Muscle spasm of back Assessments: Call with questions [facility] Orthopaedic Spine Surgery nurse practitioner For Dr Jan Serna Patient was examined, chart reviewed, labs evaluated, and diagnostic studies and findings analyzed. Case was discussed with Dr. Rei Serna who formulated the plan of care. This medical document was created using an electronic medical record system with [employer] dictation system. Although this document has been carefully reviewed, there might still be some phonetic and typographical errors. These areas are purely typographical due to imperfections of the software programs, and do not reflect any compromise in the patient's medical care. Patient is given a prescription for Flexeril 10 mg Q 8 hours for muscle spasms. This is a change from the Soma that he was given due to him feeling too uncomfortable and dizzy on it. TORI ANDERSON NP May 21, 2024 16:12
[2024-05-21] MEDS: CYCLOBENZAPRINE HCL 10 MG TAB PO SCH (20:14)
[2024-05-22] VITALS (8 sets, daily range): BP systolic 74–133; BP diastolic 68–84; PULSE 75–106; RESP 17–21; TEMP 97.8–98.4; O2SAT 92–97
--- NOTE | 2024-05-23 15:44 | DVHPN2 ---
Reviewed: Care Plan, H&P, Labs, Medications, Previous Orders Changes from previous H/P or p: No Changes General: Per HPI Objective Vitals Vital Signs Date Time Temp Pulse Resp B/P (MAP) Pulse Ox O2 Delivery O2 Flow Rate FiO2 05/22/24 20:47 97.8 97 17 92 05/22/24 20:00 Room Air* 0 21 05/22/24 17:28 112/68 (83) Intake/Output Intake and Output 05/23/24 07:00 Intake Total 650 ml Output Total 700 ml Balance -50 ml Intake Oral 650 ml Output Urine Total 700 ml General Appearance: Alert, Oriented X3 HEENT: Atraumatic Cardiovascular: Regular rate, Normal S1, Normal S2 Abdomen: Normal bowel sounds Medications Current Medications Medications Dose Ordered Sig/Mariaa Route Start Time Stop Time Status Last Admin Dose Admin Patient Own Medication 1 tab DAILY PO 05/18/24 10:00 UNV Patient Own Medication 1 tab DAILY PO 05/18/24 10:00 UNV Laboratory Results Laboratory Tests 05/20/24 07:06 Urinalysis Test 05/17/24 08:38 Urine Color Yellow (Yellow) Urine Clarity Clear (Clear) Urine pH 6.5 (5.0-9.0) Urine Specific [place] 1.023 (1.001-1.035) Urine Protein Trace (Negative) H Urine Ketones Trace (Negative) Urine Blood Negative /uL (Negative) Urine Nitrite Negative (Negative) Urine Bilirubin Negative (Negative) Urine Urobilinogen Normal mg/dL (Negative) Urine Leukocyte Esterase Negative /uL (Negative) Urine RBC <1 /hpf (0 - 3) Urine WBC 1 /hpf (0 - 3) Urine Squamous Epithelial Cells Few /hpf (<5) Urine Bacteria None seen /hpf (None Seen) Urine Mucus Few (None Seen) Urine Glucose Normal mg/dL (Normal) Assessment/Plan Assessment/Plan Hypertension, for which the patient's blood pressure will be monitored. * Hyperlipidemia. * Likely sleep apnea. * Left wrist fracture s/p splint * Obesity. * Status post lumbar spine surgery, for which he will be given physical therapy and pain medications. Plan discussed with: Patient Date of Service: May 22, 2024 Billing Provider: CONOR SHARMA DO Common Visit Codes: [id number] INP/OBS CARE(HIGH) CONOR SHARMA DO May 23, 2024 15:44
== END 2024-05-22 22:47 | disposition home or self-care (01) | DRG 448 ==
LOC: SUR 05:58 → OVERFLOW 07:27 → WEST WING 15:01 → TELE-WESTW 05-19 00:45 → WEST WING 05-19 13:17
PROVIDERS: ADMIT Internal Medicine; ATTEND Internal Medicine
PROC: 01NB0ZZ Release Lumbar Nerve, Open Approach (ICD-10-PCS; 2024-05-18)
PROC: 00NY0ZZ Release Lumbar Spinal Cord, Open Approach (ICD-10-PCS; 2024-05-18)
PROC: 4A11X4G Monitoring of Peripheral Nervous Electrical Activity, Intraoperative, External Approach (ICD-10-PCS; 2024-05-18)
PROC: 0SG10AJ Fusion of 2 or more Lumbar Vertebral Joints with Interbody Fusion Device, Posterior Approach, Anterior Column, Open Approach (ICD-10-PCS; principal; 2024-05-18 08:10)
DX: M48.062 Spinal stenosis, lumbar region with neurogenic claudication (principal); E66.9 Obesity, unspecified; S62.102A Fracture of unspecified carpal bone, left wrist, initial encounter for closed fracture; E78.5 Hyperlipidemia, unspecified; X58.XXXA Exposure to other specified factors, initial encounter; G47.30 Sleep apnea, unspecified; I10 Essential (primary) hypertension; Z82.49 Family history of ischemic heart disease and other diseases of the circulatory system; Z88.0 Allergy status to penicillin; Y93.89 Activity, other specified; Y92.89 Other specified places as the place of occurrence of the external cause; Y99.8 Other external cause status; Z68.37 Body mass index [BMI] 37.0-37.9, adult
CPT/HCPCS: 36415; 72100; 76000; 80053; 81001; 85025; 85610; 85730; 86850; 86900; 86901; 97110; 97116; 97163; 97530; G0378; J2250; J2704

== ENCOUNTER 2024-06-26 11:05 | Emergency (ER) | payer MEDICARE, MEDICAID ==
[~2024-06-26] VITALS: Ht 190.5 cm; Wt 127.7 kg
[~2024-06-26 11:05] MED LIST changes: +CYCL-611 PO; +DOCU-265 PO; +PERCOT PO
[2024-06-26] MEDS: HYDROmorphone HCL 2 MG/ML VL/or syr IM ONE (12:20)
[2024-06-26] MEDS: ONDANSETRON ODT 4 MG TAB PO ONE (12:21)
[2024-06-26] MEDS: KETOROLAC TROMETH 60MG/2ML VIAL IM ONE (12:21)
--- NOTE | 2024-06-26 12:29 | ED.PDOC ---
Musculoskeletal HPI Comments 68-year-old male with PMHx DVT presents with a chief complaint of muscle pain to his leg x onset 0200 this morning. Patient mentions that he spontaneously began to have pain in his entire right leg that started earlier this morning. Patient mentions that he has not injured or been in any trauma to cause the pain. Benny nt mentions a history of DVT and was on Eliquis. Patient mentions that he took hydrocodone and tylenol at home with no relief. Chief Complaint: Lower Extremity Time Seen by MD: 12:00 Primary Care Provider: FLORENCIA Torres Notes: Medications, Allergies Allergies: Coded Allergies: Penicillins (Verified Allergy, Unknown, 06/10/15) Home Meds Active Scripts Cyclobenzaprine HCl (Cyclobenzaprine Hydrochlo) 10 Mg Tab, 10 MG PO Q8HR for 30 Days, #90 TAB Prov:TORI ANDERSON WATERPROOFER 05/21/24 Oxycodone W/ Acetaminophen (Percocet 5/325MG) 1 Tab Tb, 2 TAB PO Q6HP PRN for 10 Days, #80 TAB Prov:TORI ANDERSON WATERPROOFER 05/21/24 Docusate Sodium (Docusate Sodium) 100 Mg Cap, 100 MG PO Q12HP PRN for 30 Days, #60 CAP Prov:TORI ANDERSON WATERPROOFER 05/21/24 Reported Medications Semaglutide (Ozempic) 2 Mg/3 Ml Inj, 2 MG SC QWEEKLY, INJ 05/11/24 Rosuvastatin Calcium (Crestor) 20 Mg Tab, 1 TAB PO DAILY, #30 TAB 5 Refills 05/20/23 Amlodipine Besylate (Amlodipine Besylate) 10 Mg Tab, 1 TAB PO DAILY, #30 TAB 5 Refills 05/20/23 Information Source: Patient Mode of Arrival: Ambulatory Location: Right Extremity Location: Leg Timing: Hours Prehospital treatment: None Severity: Moderate Able to Move Extremity: Yes Bear Weight: Fully Pain: Moderate Hand Dominance: Right Mechanism: Spontaneous Circumstances: Spontaneous Onset of Symptoms: Spontaneous Symptoms: Pain DVT Risk Factors: DVT Last Tetanus: Unknown Past Medical History PAST MEDICAL HISTORY: DM, HTN Surgical History: Denies all surgeries Family History Family History: Unknown Social History Smoker: Non-Smoker Alcohol: Occasionally Drugs: Denies Drug Use Lives In: Home Constitutional: denies: chills, diaphoresis, fatigue, fever, malaise, sweats, weakness, others EENTM: denies: blurred vision, double vision, ear bleeding, ear discharge, ear drainage, ear pain, ear ringing, eye pain, eye redness, hearing loss, mouth p ain, mouth swelling, nasal discharge, nose bleeding, nose congestion, nose pain, photophobia, tearing, throat pain, throat swelling, voice changes, others Respiratory: denies: cough, hemoptysis, orthopnea, SOB at rest, shortness of br eath, SOB with excertion, stridor, wheezing, others Cardiovascular: denies: chest pain, dizzy spells, diaphoresis, Dyspnea on exertion, edema, irregular heart beat, left arm pain, lightheadedness, palpitations, PND, syncope, others Gastrointestinal: denies: abdomen distended, abdominal pain, blood streaked bowels, constipated, diarrhea, dysphagia, difficulty swallowing, hematemesis, melena, nausea, poor appetite, poor fluid intake, rectal bleeding, rectal pain, vomiting, others Genitourinary: denies: burning, dysuria, flank pain, frequency, hematuria, incontinence, penile discharge, penile sore, pain, testicle pain, testicle swelling, urgency, others Neurological: denies: dizziness, fainting, headache, left sided numbness, left sided weakness, numbness, paresthesia, pre-existing deficit, right sided numbness, right sided weakness, seizure, speech problems, tingling, tremors, weakness, others Musculoskeletal: reports: muscle pain; denies: back pain, gout, joint pain, joint swelling, muscle stiffness, neck pain, others Integumetry: denies: bruises, change in color, change in hair/nails, dryness, laceration, lesions, lumps, rash, wounds, others Allergic/Immunocompromised: denies: Difficulty Healing, Frequent Infections, Hives, Itching, others Hematologic/Lymphatic: denies: anemia, blood clots, easy bleeding, easy bruisin g, swollen glands, others Endocrine: denies: excessive hunger, excessive sweating, excessive thirst, excessive urination, flushing, intolerance to cold, intolerance to heat, unexplained weight gain, unexplained weight loss, others Psychiatric: denies: anxiety, bipolar disorder, depression, hopeless, panic disorder, schizophrenia, sleepless, suicidal, others All Other Systems: Reviewed and Negative Physical Exam General Appearance: No Apparent Distress, Normal HEENT: Normal ENT Inspection, Pharynx Normal, TMs Normal Neck: Full Range of Motion, Non-Tender, Normal, Normal Inspection Respiratory: Chest Non-Tender, Lungs Clear, No Accessory Muscle Use, No Respiratory Distress, Normal Breath Sounds Cardiovascular: No Edema, No JVD, No Murmur, No Gallop, Normal Peripheral Pulses, Regular Rate/Rhythm Breast Exam: Deferred Gastrointestinal: No Organomegaly, Non Tender, No Pulsatile Mass, Normal Bowel Sounds, Soft Genitalia: Deferred Pelvic: Deferred Rectal: Deferred Extremities: No calf tenderness, Normal capillary refill, Normal inspection, Normal range of motion, Non-tender, No pedal edema Musculoskeletal : Apperance: Normal Neurologic: Alert, desolderer II-XII nml as Tested, No Motor Deficits, Normal Affect, Normal Mood, No Sensory Deficits Cerebellar Function: Normal Reflexes: Normal Skin: Dry, Normal Color, Warm Lymphatic: No Adenopathy Was a procedure done? Was a procedure done?: No Differential Diagnosis EXT Differential Diagnosis: Deep Vein Thrombosis, Strain, Arthritis X-Ray, Labs, Meds, VS Vital Signs Date Time Temp Pulse Resp B/P (MAP) Pulse Ox O2 Delivery O2 Flow Rate FiO2 06/26/24 13:56 81 16 115/71 06/26/24 13:00 92 16 131/72 06/26/24 12:56 88 17 131/74 06/26/24 12:20 94 18 116/76 06/26/24 12:12 98.4 94 17 116/76 (89) 94 98.4 06/26/24 12:12 94 17 94 Room Air 06/26/24 11:27 97.7 101 20 111/81 (91) 96 Current Medications Medications (Trade) Dose Ordered Sig/Mariaa Route Start Time Stop Time Status Last Admin Hydromorphone HCl (Dilaudid Injection) 1 mg ONCE ONCE IM 06/26/24 12:15 06/26/24 12:16 DC 06/26/24 12:20 Ketorolac Tromethamine (Toradol Injection) 30 mg ONCE ONCE IM 06/26/24 12:15 06/26/24 12:16 DC 06/26/24 12:21 Ondansetron HCl (Zofran Po) 4 mg ONCE ONCE PO 06/26/24 12:15 06/26/24 12:16 DC 06/26/24 12:21 Hydromorphone HCl (Dilaudid Innjection) 1 mg ONCE ONCE IM 06/26/24 13:00 06/26/24 13:01 DC 06/26/24 13:00 [facility] [id number] [place] [id number] Ph: [phone] DIAGNOSTIC IMAGING Diagnostic Imaging Report : [id number] Signed PATIENT: KALEIGH PIERRECCT: [id number] UNIT: [id number] : 1955 LOC: ER ROOM / BED: / AGE / SEX: 68 / M ADM STATUS: REG ER SERVICE 1204 ORDERING PHYSICIAN: ASHWIN ORTEGA MD PROCEDURE(s): RLDVT - RT Lower DVT REASON: ro dvt, hx of dvt ORDER NUMBER(s): [id number], ACCESSION NUMBER(s): [id number] Right lower extremity venous duplex Clinical History: ro dvt, hx of dvt Comparison: US LT LOWER DVT on DOS: 05/18/23 Technique: Duplex Doppler evaluation of the deep venous system of the right lower extremity from the common femoral vein to the popliteal vein including color Doppler and spectral/pulsed waveform analysis was performed. Findings: The common femoral vein demonstrates appropriate compressibility and waveform variability. There is compressibility/patency of the great saphenous vein at the proximal t high. The femoral vein demonstrates appropriate compressibility and waveform variability. The deep femoral vein demonstrates appropriate compressibility and waveform variability. The popliteal vein demonstrates appropriate compressibility and waveform v ariability. There is normal compressibility at the tibioperoneal trunk. Impression: 1. No right femoropopliteal venous thrombosis. 2. Contralateral common femoral vein is patent. ATED BY: LEAH GREGG MD DICTATED DATE/TIME: 06/26/24 124 SIGNED BY: LEAH GREGG MD SIGNED DATE/TIME: 06/26/24 124 CC: 68-year-old male presents here with right leg pain. Denies any injury. On my examination he is in significant distress. Considered possible sciatica. Muscle strain. DVT. Doubt acute fractures given the has been no injury. Patient has been given Dilaudid 1 IM and Toradol 30 IM with mild relief only. Additional 2 lot has been given. Ultrasound has been done of the lower extremity with no evidence of DVT. At this time the exact cause of his right leg pain is unclear. Advised patient to rest the leg, use ice and keep it elevated and pain control. I have prescribed the patient [place] for home. Advised him to follow up with his PCP in 2-3 days and return to the ER if symptoms worsen or persist. Time of 1ST Reevaluation: 12:30 Reevaluation 1ST: Unchanged Patient Education/Counseling: Diagnosis, Treatment, Prognosis Family Education/Counseling: Diagnosis, Treatment, Prognosis Departure 1 Departure Time of Disposition: 14:13 Impression: Primary Impression: Right leg pain Disposition: 01 HOME / SELF CARE / HOMELESS Condition: Stable Written Prescriptions Follow up with the primary care physician in 2-3 days and return to the ER if symptoms worsen or persist. e-Prescriptions Ondansetron Odt 4MG Tab (ZOFRAN PO) 4 Mg Tb 4 MG PO Q8HPRN PRN, #14 TAB ODT TAB-DISSOLVE IN MOUTH, THEN SWALLOW Prov: ASHWIN ORTEGA MD 06/26/24 Docusate Sodium (Colace) 100 Mg Cap 1 CAP PO BID, #30 CAP Prov: ASHWIN ORTEGA MD 06/26/24 Hydrocodone-Acetaminophen (Hydrocodone Bitartrate/AC 5-325 mg) 1 Tab Tab 1 TAB PO Q6HPRN PRN, #12 TAB Prov: ASHWIN ORTEGA MD 06/26/24 Discharged With: Self Critical Care Note Critical Care Time?: No Stability Stability form required: No Heart Score Heart Score: Heart Score Response (Comments) Value History N/A 0 EKG N/A 0 Age N/A 0 Risk Factors N/A 0 Troponin N/A 0 Total 0 I personally scribed for ASHWIN ORTEGA MD ([email or web address]) on 06/26/24 at 12:29. Electronically submitted by Darnell Guy ([email or web address]). I personally scribed for ASHWIN ORTEGA MD ([email or web address]) on 06/26/24 at 14:13. Electronically submitted by Darnell Guy ([email or web address]). ASHWIN ORTEGA MD Jun 26, 2024 12:29
--- NOTE | 2024-06-26 12:44 | DVH ---
Right lower extremity venous duplex Clinical History: ro dvt, hx of dvt Comparison: US LT LOWER DVT on DOS: 05/18/23 Technique: Duplex Doppler evaluation of the deep venous system of the right lower extremity from the common femo ral vein to the popliteal vein including color Doppler and spectral/pulsed waveform analysis was perf ormed. Findings: The common femoral vein demonstrates appropriate compressibility and waveform variability. There is compressibility/patency of the great saphenous vein at the proximal thigh. The femoral vein demonstrates appropriate compressibility and waveform variability. The deep femoral vein demonstrates appropriate compressibility and waveform variability. The popliteal vein demonstrates appropriate compressibility and waveform variability. There is normal compressibility at the tibioperoneal trunk. Impression: 1. No right femoropopliteal venous thrombosis. 2. Contralateral common femoral vein is patent.
[2024-06-26] MEDS: HYDROMORPHONE HCL 1 MG/ML INJ IM ONE (13:00)
[2024-06-26] MEDS ORDERED: DOCU-94 PO (14:20)
[2024-06-26] MEDS ORDERED: HYDR-4902 PO (14:20)
[2024-06-26] MEDS ORDERED: ZOFR4T PO (14:20)
[2024-06-26 14:41] VITALS: BP 133/70; PULSE 78; RESP 18; TEMP 98.1; O2SAT 78
[2024-06-27] MEDS ORDERED: GABA-1308 PO (03:21)
== END 2024-06-26 14:43 | disposition home or self-care (01) ==
LOC: ER 11:05
DX: M79.661 Pain in right lower leg (principal); I10 Essential (primary) hypertension; E11.9 Type 2 diabetes mellitus without complications; Z88.0 Allergy status to penicillin; Z79.899 Other long term (current) drug therapy; Z79.85 Long-term (current) use of injectable non-insulin antidiabetic drugs
CPT/HCPCS: 93971; 96372; 99285; J1170; J1171; J1885; Q0162

== ENCOUNTER 2024-06-27 01:02 | Emergency (ER) | payer MEDICARE, MEDICAID ==
[~2024-06-27] VITALS: Ht 190.5 cm; Wt 127.4 kg
[~2024-06-27 01:02] MED LIST changes: +DOCU-94 PO; +HYDR-4902 PO; +ZOFR4T PO
--- NOTE | 2024-06-27 01:28 | ED.PDOC ---
Back pain HPI HPI Comments Pt c/o right lower extremity pain x2 days. Pt was seen at this facility yesterday for same symptoms and was discharged with diagnosis of right leg pain. Pt had back surgery on 05/18 with no complications. Pt c/o pain starting in right hip and "shooting" pain down entire right leg. Pt says pain is 10/10, pt extremely anxious during triage, pt ambulatory. Denies numbness, weakness, saddle anesthesia, loss of bowel or bladder control. Chief Complaint: Lower Extremity Time Seen by MD: 01:24 Primary Care Provider: FLORENCIA Reviewed Notes: Nurses Notes, Medications, Allergies Allergies: Coded Allergies: Penicillins (Verified Allergy, Unknown, 06/10/15) Home Meds Active Scripts Ondansetron Odt 4MG Tab (ZOFRAN PO) 4 Mg Tb, 4 MG PO Q8HPRN PRN, #14 TAB ODT TAB-DISSOLVE IN MOUTH, THEN SWALLOW Prov:ASHWIN ORTEGA MD 06/26/24 Docusate Sodium (Colace) 100 Mg Cap, 1 CAP PO BID, #30 CAP Prov:ASHWIN ORTEGA MD 06/26/24 Hydrocodone-Acetaminophen (Hydrocodone Bitartrate/AC 5-325 mg) 1 Tab Tab, 1 TAB PO Q6HPRN PRN, #12 TAB Prov:ASHWIN ORTEGA MD 06/26/24 Cyclobenzaprine HCl (Cyclobenzaprine Hydrochlo) 10 Mg Tab, 10 MG PO Q8HR for 30 Days, #90 TAB Prov:TORI ANDERSON NP 05/21/24 Oxycodone W/ Acetaminophen (Percocet 5/325MG) 1 Tab Tb, 2 TAB PO Q6HP PRN for 10 Days, #80 TAB Prov:TORI ANDERSON NP 05/21/24 Docusate Sodium (Docusate Sodium) 100 Mg Cap, 100 MG PO Q12HP PRN for 30 Days, #60 CAP Prov:TORI ANDERSON NP 05/21/24 Reported Medications Semaglutide (Ozempic) 2 Mg/3 Ml Inj, 2 MG SC QWEEKLY, INJ 05/11/24 Rosuvastatin Calcium (Crestor) 20 Mg Tab, 1 TAB PO DAILY, #30 TAB 5 Refills 05/20/23 Amlodipine Besylate (Amlodipine Besylate) 10 Mg Tab, 1 TAB PO DAILY, #30 TAB 5 Refills 05/20/23 Past Medical History PAST MEDICAL HISTORY: DM, HTN Surgical History: Denies all surgeries Surgical History (Other): Lumbar spinal surgery Family History Family History: Reviewed,noncontributory to illness, Unknown Social History Smoker: Non-Smoker Alcohol: Occasionally Drugs: Denies Drug Use Lives In: Home Constitutional: denies: chills, diaphoresis, fatigue, fever, malaise, sweats, weakness, others EENTM: denies: blurred vision, double vision, ear bleeding, ear discharge, ear drainage, ear pain, ear ringing, eye pain, eye redness, hearing loss, mouth pain, mouth swelling, nasal discharge, nose bleeding, nose congestion, nose pain, photophobia, tearing, throat pain, throat swelling, voice changes, others Respiratory: denies: cough, hemoptysis, orthopnea, SOB at rest, shortness of breath, SOB with excertion, stridor, wheezing, others Cardiovascular: denies: chest pain, dizzy spells, diaphoresis, Dyspnea on exertion, edema, irregular heart beat, left arm pain, lightheadedness, palpitations, PND, syncope, others Gastrointestinal: denies: abdomen distended, abdominal pain, blood streaked bowels, constipated, diarrhea, dysphagia, difficulty swallowing, hematemesis, melena, nausea, poor appetite, poor fluid intake, rectal bleeding, rectal pain, vomiting, others Genitourinary: denies: burning, dysuria, flank pain, frequency, hematuria, incontinence, penile discharge, penile sore, pain, testicle pain, testicle swelling, urgency, others Neurological: denies: dizziness, fainting, headache, left sided numbness, left sided weakness, numbness, paresthesia, pre-existing deficit, right sided numbness, right sided weakness, seizure, speech problems, tingling, tremors, weakness, others Musculoskeletal: reports: back pain; denies: gout, joint pain, joint swelling, muscle pain, muscle stiffness, neck pain, others Integumetry: denies: bruises, change in color, change in hair/nails, dryness, laceration, lesions, lumps, rash, wounds, others Allergic/Immunocompromised: denies: Difficulty Healing, Frequent Infections, Hives, Itching, others Hematologic/Lymphatic: denies: anemia, blood clots, easy bleeding, easy bruising, swollen glands, others Endocrine: denies: excessive hunger, excessive sweating, excessive thirst, excessive urination, flushing, intolerance to cold, intolerance to heat, unexplained weight gain, unexplained weight loss, others Psychiatric: denies: anxiety, bipolar disorder, depression, hopeless, panic disorder, schizophrenia, sleepless, suicidal, others Physical Exam General Appearance: No Apparent Distress, Normal HEENT: Pharynx Normal Neck: Full Range of Motion, Non-Tender Respiratory: Lungs Clear, No Respiratory Distress, Normal Breath Sounds Cardiovascular: No Edema, No JVD, No Murmur, No Gallop, Normal Peripheral Pulses, Regular Rate/Rhythm Breast Exam: Deferred Gastrointestinal: No Organomegaly, Non Tender, No Pulsatile Mass, Normal Bowel Sounds, Soft Genitalia: Deferred Pelvic: Deferred Rectal: Deferred Extremities: Normal capillary refill, Normal inspection, Normal range of motion, Non-tender, No pedal edema Musculoskeletal : Location: Right Extremity Location: Back (Moderate tenderness on palpation over lumbar spine at L3-L4 no noted crepitus, or step-offs. Negative straight leg raise bilateral. Noted spasms L1 through L5 paraspinal muscles right greater than left side. Strength sensory motion intact positive pedal pulses negative foot drop) Apperance: Normal Neurologic: Alert, quarter section ironer II-XII nml as Tested, No Motor Deficits, Normal Affect, Normal Mood, No Sensory Deficits Cerebellar Function: Normal Reflexes: Normal Skin: Dry, Normal Color, Warm Lymphatic: No Adenopathy Was a procedure done? Was a procedure done?: No Back Pain Differential Dx Differential Diagnosis: Fracture, Musculoskeletal Pain X-Ray, Labs, Meds, VS Vital Signs Date Time Temp Pulse Resp B/P (MAP) Pulse Ox O2 Delivery O2 Flow Rate FiO2 06/27/24 03:12 103 20 114/85 06/27/24 02:00 98.0 105 19 114/79 (91) 93 98.0 06/27/24 02:00 105 19 93 Room Air 06/27/24 01:24 98.6 104 22 137/102 (114) 95 Current Medications Medications (Trade) Dose Ordered Sig/Mariaa Route Start Time Stop Time Status Last Admin Ketorolac Tromethamine (Toradol Injection) 60 mg ONCE ONCE IM 06/27/24 01:30 06/27/24 01:31 DC 06/27/24 01:54 Dexamethasone Sodium Phosphate (Decadron Injection) 10 mg ONCE ONCE IM 06/27/24 01:30 06/27/24 01:31 DC 06/27/24 01:54 Oxycodone/ Acetaminophen (Percocet 5/ 325MG Tablet) 2 tab ONCE ONCE PO 06/27/24 01:30 06/27/24 01:31 DC 06/27/24 01:53 Morphine Sulfate 0.5 mg ONCE ONCE IM 06/27/24 03:00 06/27/24 03:01 DC 06/27/24 03:12 X-Ray, Labs, Meds, VS Comment CT lumbar spine shows postsurgical changes with hardware in place without mention of acute findings. Script trial of gabapentin. Advised patient to tile picker his Percocet at the pharmacy. Patient to call and follow up with his spinal surgeon within the next several days. Follow up with PCP in 1-2 days. Advised take medications as prescribed side effects discussed. Return to the ER for increasing pain, numbness, weakness, loss of bowel or bladder control or saddle anesthesia. Indicates understanding agrees with discharge plan of care Time of 1ST Reevaluation: 02:21 Reevaluation 1ST: Improved Time of 2ND Reevaluation: 02:57 Reevaluation 2ND: Unchanged Time of 3RD Reevaluation: 03:21 Reevaluation 3RD: Improved Patient Education/Counseling: Diagnosis, Treatment, Prognosis, Need For Follow Up Family Education/Counseling: Diagnosis, Treatment, Prognosis, Need For Follow Up Departure 1 Departure Time of Disposition: 03:19 Impression: Primary Impression: Lumbar back pain with radiculopathy affecting right lower extremity Disposition: 01 HOME / SELF CARE / HOMELESS Condition: Stable e-Prescriptions Gabapentin (Gabapentin) 100 Mg Cap 1 CAP PO TID for 10 Days, #30 CAP Prov: MONTSERRAT ISAAC 06/27/24 Discharged With: Spouse Critical Care Note Critical Care Time?: No Stability Stability form required: MONTSERRAT Walker Jun 27, 2024 01:28
[2024-06-27] MEDS: OXYCODONE W/ ACETAMINOPHEN 5/325MG TABLET PO ONE (01:53)
[2024-06-27] MEDS: KETOROLAC TROMETH 60MG/2ML VIAL IM ONE (01:54)
[2024-06-27] MEDS: DexAMETHasone SOD PHOS 10MG/1ML VIAL INJ IM ONE (01:54)
[2024-06-27 02:00] VITALS: TEMP 98; O2SAT 93
--- NOTE | 2024-06-27 02:32 | DVH ---
EXAM: CT LS SPINE WO CONTRAST HISTORY: right side low back pain COMPARISON: None CTDIvol 38.9 mGy, DLP 1459 mGy*cm. TECHNIQUE: Multiple axial CT images of the spine were obtained using bone algorithm. Axial and coron al reformatting was done. Bone and soft tissue windows were reviewed. FINDINGS: No CT evidence of definite acute fracture, spinal dislocation, or significant appearing acute subluxa tion is seen. L3 hemilaminectomy with L3-L5 posterior spine fixation and disc spacers. The hardware is intact. No fracture or loosening. Postsurgical changes in the posterior soft tissues. IMPRESSION: Expected postsurgical changes at L3-L5 vertebrae. Intact hardware. Postsurgical changes in the poste rior soft tissues.
[2024-06-27 03:12] VITALS: BP 114/85; PULSE 103; RESP 20
[2024-06-27] MEDS: MORPHINE SULFATE INJ 2 MG/ml SYRG IM ONE (03:12)
[2024-06-27] MEDS ORDERED: GABA-1308 PO (03:21)
== END 2024-06-27 04:33 | disposition home or self-care (01) ==
LOC: ER 01:02
DX: M54.16 Radiculopathy, lumbar region (principal); I10 Essential (primary) hypertension; E11.9 Type 2 diabetes mellitus without complications; Z79.899 Other long term (current) drug therapy; Z88.0 Allergy status to penicillin
CPT/HCPCS: 72131; 96372; 99285; J1100; J1885; J2270